=== PATIENT | male | born 1965 | race African-American/Black ===

== ENCOUNTER 2017-02-04 14:06 | Emergency (ER) | payer MEDICAID, MEDICARE ==
[~2017-02-04] VITALS: Ht 182.9 cm; Wt 86.2 kg
[~2017-02-04 14:06] MED LIST: AGM875T PO; AMLO10TA PO; AMLO10TA82 PO; ATENOLOL; BUDE0.5A2 IH; CA C1TAB26 PO; COLC0.6T53; COLC0.6T53 PO; COLC0.6T7 PO; COUMADIN PO; CYCL10TA9 PO; DEXA4TAB PO; DILT240C; DULO60CA58 PO; DULO60CA6 PO; FEBU40TA PO; FERR-57 PO; FLC1T PO; FOLI0.4T2 PO; FRS325T PO; GABA-488 PO; GABA600T2 PO; GBPN100C PO; GLIM2TAB PO; HYDR-2889 PO; HYDR1TAB PO; IBP800T; IPRA3AMP19 IH; LENA25CA PO; LEVO500T69 PO; METF1000 PO; MTF500T; MTF500T PO; MTP50T PO; NS.65NA45; OXC10TCR PO; OXYCODONE 10 MG PO; PANT40TA PO; PNT40TEC PO; POLY17PO23 PO; REVLIMID 10MG PO; SITA100T PO
[2017-02-04] MEDS ORDERED: ACETAMINOPHEN 325 MG TABLET/CAPLET (TYLENOL) PO STA (15:20)
--- NOTE | 2017-02-04 15:39 | ED Cough/URI ---
General Chief Complaint: Cough/Cold/Flu Symptoms Stated Complaint: POSS PNEUMONIA,FEVER,CHILLS,N/V Nursing Triage Note: AMB TO ROOM REPORTS THAT FOR 2 DAYS HAS HAD COUGH CONGESTION BODY ACHES. History of Present Illness Time seen by provider: 15:10 Initial Comments Patient reports dry cough, fevers and body aches for 2 days. He has a history of multiple myeloma, he is on remission medication. He took ibuprofen approximately 5 hours ago, he had one episode of vomiting after that. He denies any nausea or vomiting presently. He was at [facility] approximately 2-3 weeks ago for a bone marrow biopsy. Severity/Quality: dry cough Prior Episodes/Possible Cause: occasional episodes Modifying Factors: Improves With Rest Associated Symptoms: cough, muscle aches, nasal congestion, shortness of breath Allergies and Home Medications Allergies Coded Allergies: No Known Drug Allergies (Unverified , 05/27/09) Home Medications Amlodipine Besylate 10 Mg Tablet, 10 MG PO DAILY, (Reported) Ca Cmb No.1/Vit D3/B-6/Fa/B12 1 Each Tablet, 1,000 UNIT PO DAILY, (Reported) Cefdinir 300 Mg Capsule, 300 MG PO BID, #14 Ref 0 Prescribed by: AUDREY RINCON on 02/04/171727 Colchicine 0.6 Mg Tablet, 0.6 MG PO BID PRN for GOUT PAIN, (Reported) Cyclobenzaprine Hcl 10 Mg Tablet, 10 MG PO TID PRN for MUSCLE SPASMS, (Reported) Duloxetine HCl 60 Mg Capsule.dr, 60 MG PO DAILY, (Reported) Febuxostat 40 Mg Tablet, 40 MG PO DAILY, (Reported) Ferrous Sulfate 325 Mg Tab, 325 MG PO DAILY, (Reported) Folic Acid 0.4 Mg Tablet, 0.4 MG PO DAILY, (Reported) Gabapentin 300 Mg Capsule, 300 MG PO HS, (Reported) Glimepiride 2 Mg Tablet, 2 MG PO BID, (Reported) Metformin Hcl 1,000 Mg Tablet, 1,000 MG PO BID, (Reported) Metoprolol Tartrate 50 Mg Tablet, 50 MG PO BID, (Reported) Pantoprazole Sodium 40 Mg Tablet.dr, 40 MG PO DAILY, (Reported) Polyethylene Glycol 17 Gm Pack, 34 GM PO DAILY PRN for CONSTIPATION, (Reported) Potassium Chloride 10 Meq Capsule.er, 10 MEQ PO DAILY, #5 Ref 0 Prescribed by: AUDREY RINCON on 02/04/17 1728 Sitagliptin Phosphate 100 Mg Tablet, 100 MG PO DAILY, (Reported) [Oxycodone 10MG] , 10 MG PO BID, (Reported) [Revlimid 10MG] , 10 MG PO DAILY, (Reported) Constitutional: no symptoms reported, see HPI Respiratory: see HPI, cough All Other Systems Reviewed Negative Unless Noted: Yes Past Uchverd-Hpzlau-Dycazm Hx Patient Social History Alcohol Use: Occasionally Uses Number of Drinks Today: AA Alcohol Beverage of Choice: Beer Recreational Drug Use: No Smoking Status: Never a Smoker Recent Foreign Travel: No Contact w/Someone Who Travel: No Recent Infectious Disease Expo: No Recent Hopitalizations: No Immunizations Up To Date Date of Pneumonia Vaccine: Jul 18, 2012 Date of Influenza Vaccine: Mar 19, 2012 Surgeries History of Surgeries: Yes (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, KNEE,SHOLDER) Respiratory History of Respiratory Disorde: No Cardiovascular History of Cardiac Disorders: Yes Neurological History of Neurological Disord: Yes (BELLS PALSY) Reproductive System Hx Reproductive Disorders: No Sexually Transmitted Disease: No Gastrointestinal History of Gastrointestinal Di: No Musculoskeletal History of Musculoskeletal Dis: No Musculoskeletal Disorders: Chronic Back Pain Endocrine History of Endocrine Disorders: Yes Endocrine Disorders: Diabetes, Non-Insulin dep Cancer History of Cancer: Yes (MULTIPLE MYELOMA, STEM CELL TRANSPLANT) Psychosocial History of Psychiatric Problem: No Blood Transfusions History of Blood Disorders: No Reviewed Nursing Assessment Reviewed/Agree w Nursing PMH: Yes Physical Exam Vital Signs Vital Sign - Last 12Hours 02/04/17 14:27 Temp 99.6 Pulse 118 Resp 18 B/P (MAP) 154/94 Pulse Ox 98 O2 Delivery Room Air Capillary Refill : Less Than 3 Seconds General Appearance: WD/WN, no apparent distress Eyes: Bilateral Eye Normal Inspection, Bilateral Eye PERRL, Bilateral Eye EOMI HEENT: PERRL/EOMI, normal ENT inspection, TMs normal, pharynx normal Neck: non-tender, full range of motion, supple, normal inspection Respiratory: chest non-tender, lungs clear, decreased breath sounds (on exhalation) Cardiovascular: normal peripheral pulses, regular rate, rhythm Gastrointestinal: normal bowel sounds, non tender, soft Neurologic/Psychiatric: no motor/sensory deficits, alert, normal mood/affect Skin: normal color, warm/dry Lymphatic: no adenopathy Focused Exam Evaluation Lactate Level Laboratory Tests 02/04/17 15:40: Lactic Acid Level 1.43 Lactic Acid Level Laboratory Tests Test 02/04/17 15:40 Lactic Acid Level 1.43 MMOL/L (0.50-2.00) Progress/Results/Core Measures Results/Orders Lab Results Laboratory Tests Test 02/04/17 15:40 Range/Units White Blood Count 3.9 L 4.3-11.0 10^3/uL Red Blood Count 4.92 4.35-5.85 10^6/uL Hemoglobin 13.6 13.3-17.7 G/DL Hematocrit 40 40-54 % Mean Corpuscular Volume 81 80-99 FL Mean Corpuscular Hemoglobin 28 25-34 PG Mean Corpuscular Hemoglobin Concent 34 32-36 G/DL Red Cell Distribution Width 14.8 H 10.0-14.5 % Platelet Count 136 130-400 10^3/uL Mean Platelet Volume 9.2 7.4-10.4 FL Neutrophils (%) (Auto) 49 42-75 % Lymphocytes (%) (Auto) 37 12-44 % Monocytes (%) (Auto) 14 H 0-12 % Eosinophils (%) (Auto) 0 0-10 % Basophils (%) (Auto) 0 0-10 % Neutrophils # (Auto) 1.9 1.8-7.8 X 10^3 Lymphocytes # (Auto) 1.4 1.0-4.0 X 10^3 Monocytes # (Auto) 0.5 0.0-1.0 X 10^3 Eosinophils # (Auto) 0.0 0.0-0.3 10^3/uL Basophils # (Auto) 0.0 0.0-0.1 10^3/uL Sodium Level 132 L 135-145 MMOL/L Potassium Level 2.9 L 3.6-5.0 MMOL/L Chloride Level 92 L 98-107 MMOL/L Carbon Dioxide Level 29 21-32 MMOL/L Anion Gap 11 5-14 MMOL/L Blood Urea Nitrogen 7 7-18 MG/DL Creatinine 1.06 0.60-1.30 MG/DL Estimat Glomerular Filtration Rate > 60 BUN/Creatinine Ratio 7 Glucose Level 125 H 70-105 MG/DL Lactic Acid Level 1.43 0.50-2.00 MMOL/L Calcium Level 8.5 8.5-10.1 MG/DL Total Bilirubin 1.0 0.1-1.0 MG/DL Aspartate Amino Transf (AST/SGOT) 59 H 5-34 U/L Alanine Aminotransferase (ALT/SGPT) 33 0-55 U/L Alkaline Phosphatase 81 40-136 U/L Total Protein 11.2 H 6.4-8.2 GM/DL Albumin 3.8 3.2-4.5 GM/DL Micro Results Microbiology 02/04/17 Influenza Types A,B Antigen (VIVIANA) - Final, Complete My Orders Orders - AUDREY RINCON Chest Pa/Lat (2 View) (02/04/17 15:18) Cbc With Automated Diff (02/04/17 15:19) Comprehensive Metabolic Panel (02/04/17 15:19) Acetaminophen Tablet/Caplet (Tylenol T (02/04/17 15:20) Influenza A And B Antigens (02/04/17 15:20) Saline Lock/Iv-Start (02/04/17 15:20) Lactic Acid Analyzer (02/04/17 15:21) Blood Culture (02/04/17 15:42) Ns W/Kcl 20 Meq/L (Ns Iv W/Kcl 20 Meq/L) (02/04/17 16:22) Medications Given in ED Current Medications Medications Dose Ordered Sig/Citlali Route Start Time Stop Time Status Last Admin Dose Admin Potassium Chloride/Sodium Chloride 1,000 ml @ ud STK-MED ONCE IV 02/04/17 16:22 02/04/17 16:31 DC 02/04/17 16:35 750 MLS/HR Vital Signs/I&O Vital Sign - Last 12Hours 02/04/17 02/04/17 14:27 18:06 Temp 99.6 98.2 Pulse 118 100 Resp 18 18 B/P (MAP) 154/94 Pulse Ox 98 98 O2 Delivery Room Air Blood Pressure Mean: 114 Progress Note : Time: 15:10 Progress Note Initial evaluation completed, recommended CBC, CMP, blood cultures, lactic acid , influenza swab, and chest x-ray. Will reevaluate after diagnostic studies. 1545 reviewed chest x-ray results with the patient, essentially normal. Negative influenza swab. Patient has hypokalemia and hyponatremia, will administer normal saline with 20 mEq of potassium 1 L IV over one hour. 1630 discussed discharge planning with the patient, he understands importance to follow-up with his oncologist in [place]. Reviewed recommendations for return to emergency department if symptoms are worsening. He will complete antibiotics as prescribed. Encouraged him to began drinking Pedialyte on a regular basis and eating bananas for his electrolyte abnormalities. He verbalized understanding of this treatment plan and was in agreement. Diagnostic Imaging Diagonstic Imaging: Xray Plain Films/CT/US/NM/MRI: chest Comments NAME: [facility] REC#: [id number] PT STATUS: REG ER : 1965 PHYSICIAN: AUDERY RINCON LAUNDRY SORTER ADMIT DATE: 02/04/17/ER Signed Date of Exam: 02/04/17 CHEST PA/LAT (2 VIEW) PA and lateral views of the chest. INDICATION: Cough. FINDINGS: The lungs are clear. The heart size is normal. No effusion or pneumothorax. The mediastinum and luz appear unremarkable. There is a left subclavian infusion port with the tip at the SVC level. IMPRESSION: No acute process. Dictated by: Dictated on workstation # [id number] Dict: 02/04/17 1532 Trans: 02/04/17 1542 Interpreted by: DEWAYNE HAYES MD Electronically signed by: DEWAYNE HAYES MD 02/04/17 1542 Reviewed: Reviewed by Me Departure Impression Impression: Primary Impression: Upper respiratory infection Qualified Codes: J06.9 - Acute upper respiratory infection, unspecified Additional Impressions: Hypokalemia Hyponatremia Disposition: 01 HOME, SELF-CARE Condition: Stable Departure-Patient Inst. Decision time for Depature: 16:45 Referrals: NO,LOCAL PHYSICIAN (PCP/Family) Primary Care Physician Patient Instructions: Bacterial Upper Respiratory Infection, Adult (DC) Add. Discharge Instructions: Take antibiotic as prescribed. Follow up with primary care provider in 3-4 days if symptoms are not improving. Alternate Tylenol 650 mg and ibuprofen 600 mg every 4 hours for fever and body aches. Return to emergency department for temperature greater than 101, worsening of symptoms or new problems. Drink 6-8 oz of Pedialyte 3-4 times daily. Eat a banana daily. All discharge instructions reviewed with patient and/or family. Voiced understanding. Scripts Potassium Chloride (Potassium Chloride) 10 Meq Capsule.er 10 MEQ PO DAILY, #5 CAP 0 Refills Prov: AUDREY RINCON 02/04/17 Cefdinir (Cefdinir) 300 Mg Capsule 300 MG PO BID, #14 CAP 0 Refills Prov: AUDREY RINCON 02/04/17 AUDREY RINCON Feb 04, 2017 15:39
[2017-02-04 15:57] LABS: BASOPHILS % (AUTO) 0 % (0-10); EOSINOPHILS % (AUTO) 0 % (0-10); LYMPHOCYTES # (AUTO) 1.4 X 10^3 (1.0-4.0); LYMPHOCYTES % (AUTO) 37 % (12-44); MEAN CORPUSCULAR HEMOGLOBIN 28 PG (25-34); MEAN CORPUSCULAR HGB CONC 34 G/DL (32-36); MEAN CORPUSCULAR VOLUME 81 FL (80-99); MEAN PLATELET VOLUME 9.2 FL (7.4-10.4); MONOCYTES # (AUTO) 0.5 X 10^3 (0.0-1.0); MONOCYTES % (AUTO) 14 % (0-12); NEUTROPHILS # (AUTO) 1.9 X 10^3 (1.8-7.8); NEUTROPHILS % (AUTO) 49 % (42-75); PLATELET COUNT 136 10^3/uL (130-400); RED BLOOD COUNT 4.92 10^6/uL (4.35-5.85); RED CELL DISTRIBUTION WIDTH 14.8 % (10.0-14.5); WHITE BLOOD COUNT 3.9 10^3/uL (4.3-11.0)
[2017-02-04 16:19] LABS: ALANINE AMINOTRANSFERASE 33 U/L (0-55); ALBUMIN 3.8 GM/DL (3.2-4.5); ANION GAP 11 MMOL/L (5-14); ASPARTATE AMINO TRANSFERASE 59 U/L (5-34); BLOOD UREA NITROGEN 7 MG/DL (7-18); BUN/CREATININE RATIO 7; CALCIUM 8.5 MG/DL (8.5-10.1); CARBON DIOXIDE 29 MMOL/L (21-32); CHLORIDE 92 MMOL/L (98-107); CREATININE SERUM 1.06 MG/DL (0.60-1.30); GFR ESTIMATED > 60; GLUCOSE 125 MG/DL (70-105); POTASSIUM 2.9 MMOL/L (3.6-5.0); SODIUM 132 MMOL/L (135-145); TOTAL PROTEIN 11.2 GM/DL (6.4-8.2)
[2017-02-04] MEDS ORDERED: NS W/KCL 20 MEQ/L 1,000 ML IV ONE (16:22)
[2017-02-04] MEDS ORDERED: CEFD300C3 PO (17:28)
[2017-02-04] MEDS ORDERED: POTA10CA43 PO (17:28)
[2017-02-04 18:06] VITALS: BP 148/95
--- OUTSIDE RECORDS SUMMARY | 2017-02-04 21:15 | XMS REPORT | Clinical Summary ---
Author Author [facility] Organization [facility] Address Unknown Phone Unavailable Care Team Providers Care Continuous Process Tanner Rotary Drum Name Role Phone PCP Unavailable Source Comments Some departments are not documenting in the electronic medical record. If you do not see the information that you expected, contact Release of Information in the Health Information Management department at [phone] for further assistance in locating additional records.[facility] Allergies No Known Allergies Current Medications Prescription Sig. Disp. Refills Start End Date Status Date lidocaine/prilocaine Apply 1 g to affected Active (EMLA) 2.5/2.5 % topical area as Needed. Apply to cream port site insulin aspart (NOVOLOG) Inject 5 Units into Active 100 unit/mL area(s) as directed three times daily with meals. PRN per mid-dose sliding scale. metoprolol (LOPRESSOR) 50 Take 50 mg by mouth Active mg tablet daily. gabapentin (NEURONTIN) Take 300 mg by mouth Active 300 mg capsule three times daily. DULoxetine DR (CYMBALTA) Take 60 mg by mouth Active 60 mg capsule daily. pantoprazole DR Take 40 mg by mouth Active (PROTONIX) 40 mg tablet daily. Febuxostat (ULORIC) 40 mg Take 1 Tab by mouth Active Tab daily. metFORMIN (GLUCOPHAGE) Take 500 mg by mouth Active 500 mg tablet twice daily with meals. INSULIN Inject 10 Units into Active GLARGINE,HUM.REC.ANLOG area(s) as directed at (LANTUS SC) bedtime daily. senna/docusate Take 1 Tab by mouth three Active (SENEXON-S) 8.6/50 mg times daily. HOLD DURING tablet TRANSPLANT cyclobenzaprine Take 10 mg by mouth three Active (FLEXERIL) 10 mg tablet times daily as needed. acyclovir (ZOVIRAX) 400 Take 800 mg by mouth Active mg tablet twice daily. LORazepam (ATIVAN) 0.5 mg Take 0.5 mg by mouth Active tablet every 6 hours as needed. Take 1-2 tabs by mouth every 6 hours as needed for nausea or anxiety. trimethoprim/sulfamethoxa Take 1 Tab by mouth as Active zole (BACTRIM DS) 160/800 Needed. One tab twice mg tablet daily on Mondays and only. amLODIPine (NORVASC) 10 Take 10 mg by mouth Active mg tablet daily. ondansetron (ZOFRAN ODT) Take 8 mg by mouth every Active 8 mg disintegrating 8 hours as needed. tablet oxyCODONE (ROXICODONE) 5 Take 1-2 Tabs by mouth 60 Tab 0 07/02/20 Active mg tablet every 4-6 hours as 12 needed. colchicine 0.6 mg tablet Take 1 Tab by mouth twice 60 Tab 5 07/03/19 Active daily. 12 methylPREDNIsolone Take 1 Tab by mouth Take 21 Tab 0 07/03/19 Active (MEDROL DOSPACK) 4 mg as directed. Follow 12 tablet instructions on package. Do not take day 1, start on evening dose of day 2. 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 Knee pain 06/26/2011 Gout 06/26/2011 Multiple myeloma, without mention of having achieved remission 05/26/2011 HTN (hypertension) 05/26/2011 DM (diabetes mellitus) (HCC) 05/26/2011 At risk for falls 05/26/2011 Overview: Uses cane / walker, has a weak back and knees Immunizations Name Dates Previously Given Next Due Acthib Vaccine 04/03/2013, 03/21/2012 FLU VACCINE >3YO 03/21/2012 (Preservative Free) HEPATITIS B vaccine, 01/06/2013, 03/21/2012 unspecified (Historical) IPV 04/03/2013, 01/06/2013, 03/21/2012 Pneumococcal Vaccine 03/21/2012 (23-Ivone Adult) Pneumococcal 04/03/2013, 01/06/2013 Vaccine(13-Ivone Peds/immunocompromised adult) Tdap Vaccine 01/06/2013, 03/21/2012 Family History Medical History Relation Name Comments Hypertension Brother SLE Maternal Aunt Cancer-Breast Maternal Grandmother Relation Name Status Comments Brother Alive Brother Alive Brother Alive Brother Alive Father Other unknown medical history Half Sister Other unknown medically history Maternal Aunt Maternal Grandmother Mother Alive Social History Tobacco Use Types Packs/Day Years Used Date Former Smoker Quit: 04/19/2001 Smokeless Tobacco: Former Quit: User 05/18/2011 Alcohol Use Drinks/Week oz/Week Comments Yes socially drinks beer / monthly Sex Assigned at Date Recorded Not on file Last Filed Vital Signs Vital Sign Reading Time Taken Blood Pressure 122/82 07/03/2011 12:00 PM CDT Pulse 73 07/03/2011 12:00 PM CDT Temperature 36.4 C (97.5 F) 07/03/2011 12:00 PM CDT Respiratory Rate 18 06/26/2011 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 Oxygen Saturation 98% 07/03/2011 12:00 PM CDT Inhaled Oxygen - - Concentration Weight 96 kg (211 lb 10.3 oz) 07/03/2011 4:00 AM CDT Height 182.9 cm (6') 06/30/2011 5:30 PM CDT Body Mass Index 28.7 07/03/2011 4:00 AM CDT Plan of Treatment Health Maintenance Due Date Last Done Comments PHYSICAL (COMPREHENSIVE) 1973 EXAM DILATED EYE EXAM 1984 FOOT EXAM 1984 HBA1C 1984 MICROALBUMIN 1984 COLORECTAL CANCER 2016 SCREENING INFLUENZA VACCINE 11/17/2016 03/21/2012 TETANUS VACCINE 01/06/2023 01/06/2013, 03/21/2012 PERTUSSIS VACCINE Completed 01/06/2013, 03/21/2012 PNEUMONIA VACCINE (DM) Completed 04/03/2013, 01/06/2013, 03/21/2012 Results Not on filefrom Last 3 Months
== END 2017-02-04 18:08 | disposition home or self-care (01) ==
LOC: EDUNIT# 14:06 → ER 14:08
DX: N39.0 Urinary tract infection, site not specified (principal); E87.6 Hypokalemia; E87.1 Hypo-osmolality and hyponatremia; E11.9 Type 2 diabetes mellitus without complications; Z94.84 Stem cells transplant status; Z79.84 Long term (current) use of oral hypoglycemic drugs
CPT/HCPCS: 36415; 71020; 80053; 83605; 85025; 87040; 87804; 96365; 96366; 99283

== ENCOUNTER 2018-01-19 14:35 | Emergency (ER) | payer MEDICARE, OTHER ==
[~2018-01-19] VITALS: Ht 182.9 cm; Wt 97.5 kg
[~2018-01-19 14:35] MED LIST changes: +CEFD300C3 PO; +POTA10CA43 PO
--- OUTSIDE RECORDS SUMMARY | 2018-01-19 14:43 | XMS REPORT | Clinical Summary ---
Author Author [facility] Organization [facility] Address Unknown Phone Unavailable Care Team Providers Care Machine Setter Supervisor Name Role Phone Cristobal Goodrich MD PCP Cooper Mracelino MD Unavailable Virgilio Patel MD Unavailable Unavailable Oumar Hodge DO Unavailable Paco Wetzel MD Unavailable Cortney Sifuentes APRN Unavailable Anna Hampton Unavailable Unavailable Source Comments Some departments are not documenting in the electronic medical record. 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 Oxygen Saturation 98% 07/03/2011 12:00 PM CDT Inhaled Oxygen - - Concentration Weight 96 kg (211 lb 10.3 oz) 07/03/2011 4:00 AM CDT Height 182.9 cm (6') 06/30/2011 5:30 PM CDT Body Mass Index 28.7 07/03/2011 4:00 AM CDT Plan of Treatment Health Maintenance Due Date Last Done Comments PHYSICAL (COMPREHENSIVE) 1973 EXAM HIV SCREENING 1981 DILATED EYE EXAM 1984 FOOT EXAM 1984 HBA1C 1984 MICROALBUMIN 1984 COLORECTAL CANCER 2016 SCREENING SHINGLES RECOMBINANT 2016 VACCINE (1 of 2) INFLUENZA VACCINE 11/17/2017 03/21/2012 TETANUS VACCINE 01/06/2023 01/06/2013, 03/21/2012 PERTUSSIS VACCINE Completed 01/06/2013, 03/21/2012 PNEUMONIA VACCINE (DM) Completed 04/03/2013, 01/06/2013, 03/21/2012 Results Not on filefrom Last 3 Months
--- OUTSIDE RECORDS SUMMARY | 2018-01-19 14:43 | XMS REPORT | Encounter Summary ---
Author Author [facility] Organization [facility] Address Unknown Phone Unavailable Care Team Providers Care Business Analytics Faculty Member Name Role Phone Cristobal Goodrich MD PCP Cooper Marcelino MD Unavailable Virgilio Patel MD Unavailable Unavailable Oumar Hodge DO Unavailable Paco Wetzel MD Unavailable Cortney Sifuentes APRN Unavailable Anna Hampton Unavailable Unavailable Encounter Details Date Type Department Care Team Description 11/23/2017 Documentation [facility] Oumar Hodge DO [facility] - BMT Exam [address] [employer] [address] [employer] [facility] [place] [address] [place] [address] [address] [phone] [place] [address] [phone] Social History Tobacco Use Types Packs/Day Years Used Date Former Smoker Quit: 04/19/2001 Smokeless Tobacco: Former Quit: User 05/18/2011 Alcohol Use Drinks/Week oz/Week Comments Yes socially drinks beer / monthly Sex Assigned at Date Recorded Not on file as of this encounter Plan of Treatment Not on fileas of this encounter Visit Diagnoses Not on filein this encounter
[2018-01-19] MEDS ORDERED: PHENYTOIN INJECTION 1,000 MG in NS (IVPB) 50 ML, 0.2 MICRON FILTER IV SET 1 EACH IV ONE ×3 (14:45)
[2018-01-19] MEDS ORDERED: TETANUS,DIPTH,PERTUSS P/F (BOOSTRIX) 0.5 ML VIAL IM STA (14:45)
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
[2018-01-19 14:53] LABS: BASOPHILS % (AUTO) 0 % (0-10); EOSINOPHILS % (AUTO) 0 % (0-10); HEMATOCRIT 37 % (40-54); HEMOGLOBIN 12.2 G/DL (13.3-17.7); LYMPHOCYTES # (AUTO) 2.4 X 10^3 (1.0-4.0); LYMPHOCYTES % (AUTO) 40 % (12-44); MEAN CORPUSCULAR HEMOGLOBIN 29 PG (25-34); MEAN CORPUSCULAR HGB CONC 33 G/DL (32-36); MEAN CORPUSCULAR VOLUME 89 FL (80-99); MEAN PLATELET VOLUME 8.5 FL (7.4-10.4); MONOCYTES # (AUTO) 0.4 X 10^3 (0.0-1.0); MONOCYTES % (AUTO) 7 % (0-12); NEUTROPHILS # (AUTO) 3.2 X 10^3 (1.8-7.8); NEUTROPHILS % (AUTO) 53 % (42-75); PLATELET COUNT 213 10^3/uL (130-400); RED BLOOD COUNT 4.17 10^6/uL (4.35-5.85); RED CELL DISTRIBUTION WIDTH 14.7 % (10.0-14.5)
[2018-01-19 15:05] LABS: INR 1.3 (0.8-1.4); PROTHROMBIN TIME PATIENT 15.9 SEC (12.2-14.7)
--- NOTE | 2018-01-19 15:05 | ED Neurological Problem ---
General Chief Complaint: Neurological Problems Stated Complaint: SEIZURE Source: patient, EMS Exam Limitations: clinical condition History of Present Illness Date Seen by Provider: Jan 19, 2018 Time Seen by Provider: 14:43 Initial Comments Patient presents to ER by EMS with chief complaint that he had us witnessed seizure at [facility] this prior to arrival. He has no history of seizures but he does have a history of multiple myeloma. Patient remembers going on his way to [facility] and then passing out. Assumed care of the patient from Dr. Colon who had already seen the patient. At the time she saw him she said he was postictal, confused as to where he was but knew who he was and what time it was. He knew he was in [place] only but thought it was home. He knows that he is in the emergency room and he remembers up to the point that he was heading to [facility]. He takes an aspirin patient follows an oncologist in [place], [place]. He is not having any chest pain shortness of breath or fevers but he does have a dry cough for the past 3 or 4 days. He says he is having pain in the back of his head. Allergies and Home Medications Allergies Coded Allergies: No Known Drug Allergies (Unverified , 05/27/09) Home Medications Amlodipine Besylate 10 Mg Tablet, 10 MG PO DAILY, (Reported) Ca Cmb No.1/Vit D3/B-6/Fa/B12 1 Each Tablet, 1,000 UNIT PO DAILY, (Reported) Cefdinir 300 Mg Capsule, 300 MG PO BID Prescribed by: AUDREY RINCON on 02/04/17 3870 Colchicine 0.6 Mg Tablet, 0.6 MG PO BID PRN for GOUT PAIN, (Reported) Cyclobenzaprine Hcl 10 Mg Tablet, 10 MG PO TID PRN for MUSCLE SPASMS, (Reported) Duloxetine HCl 60 Mg Capsule.dr, 60 MG PO DAILY, (Reported) Febuxostat 40 Mg Tablet, 40 MG PO DAILY, (Reported) Ferrous Sulfate 325 Mg Tab, 325 MG PO DAILY, (Reported) Folic Acid 0.4 Mg Tablet, 0.4 MG PO DAILY, (Reported) Gabapentin 300 Mg Capsule, 300 MG PO HS, (Reported) Glimepiride 2 Mg Tablet, 2 MG PO BID, (Reported) Metformin Hcl 1,000 Mg Tablet, 1,000 MG PO BID, (Reported) Metoprolol Tartrate 50 Mg Tablet, 50 MG PO BID, (Reported) Pantoprazole Sodium 40 Mg Tablet.dr, 40 MG PO DAILY, (Reported) Polyethylene Glycol 17 Gm Pack, 34 GM PO DAILY PRN for CONSTIPATION, (Reported) Potassium Chloride 10 Meq Capsule.er, 10 MEQ PO DAILY Prescribed by: AUDREY RINCON on 02/04/17 1728 Sitagliptin Phosphate 100 Mg Tablet, 100 MG PO DAILY, (Reported) [Oxycodone 10MG] , 10 MG PO BID, (Reported) [Revlimid 10MG] , 10 MG PO DAILY, (Reported) Patient Home Medication List Home Medication List Reviewed: Yes Review of Systems Review of Systems Constitutional: No chills, No diaphoresis Eyes: Denies Blindness, Denies Blurred Vision Ears, Nose, Mouth, Throat: denies ear pain, denies ear discharge Respiratory: cough; No phlegm, No short of breath Cardiovascular: No chest pain, No edema, No Hx of Intervention, No palpitations Gastrointestinal: No abdominal pain, No constipation, No diarrhea, No nausea Genitourinary: No discharge, No dysuria Musculoskeletal: No back pain, No joint pain Past Yqbzhuf-Wyhhpq-Jfjfdo Hx Patient Social History Alcohol Use: Occasionally Uses Alcohol Beverage of Choice: Beer Recreational Drug Use: No Smoking Status: Former Smoker Type Used: Smokeless Tobacco (current user) Recent Hopitalizations: No Immunizations Up To Date Date of Pneumonia Vaccine: Jul 18, 2012 Date of Influenza Vaccine: Mar 19, 2012 Past Medical History Surgeries: Yes (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, KNEE,SHOLDER) Respiratory: No Cardiac: Yes Neurological: Yes (BELLS PALSY) Reproductive Disorders: No Sexually Transmitted Disease: No Gastrointestinal: No Musculoskeletal: No Chronic Back Pain Endocrine: Yes Diabetes, Non-Insulin dep Cancer: Yes (MULTIPLE MYELOMA, STEM CELL TRANSPLANT) Psychosocial: No Blood Disorders: No Physical Exam Vital Signs Vital Signs - First Documented 01/19/18 14:35 Temp 98.4 Pulse 133 Resp 20 B/P (MAP) 154/103 (120) Pulse Ox 97 O2 Delivery Room Air Capillary Refill : Height, Weight, BMI Height: 6'" Weight: 190lbs. oz. [id number]; BMI Method:Stated General Appearance: WD/WN, mild distress HEENT: PERRL/EOMI, normal ENT inspection, TMs normal, pharynx normal, other ( negative for hemotympanum, carter sign or raccoon eyes. He does have a rather large 5 cm diameter soft, tender hematoma over his right occiput) Neck: non-tender, supple, normal inspection, other (cervical collar and C- spine precautions in place.) Respiratory: chest non-tender, lungs clear, normal breath sounds, no respiratory distress, no accessory muscle use Cardiovascular: normal peripheral pulses, regular rate, rhythm, no edema, no murmur Peripheral Pulses: 2+ Dorsalis Pedis (R), 2+ Left Dors-Pedis (L), 2+ Radial Pulses (R), 2+ Radial Pulses (L) Gastrointestinal: normal bowel sounds, non tender, soft Extremities: normal range of motion, non-tender, normal inspection, normal capillary refill 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, no motor/sensory deficits, alert, normal mood/affect, oriented x 3 Crainal Nerves: normal hearing, normal speech, PERRL Motor/Sensory: no motor deficit, no sensory deficit Skin: normal color, warm/dry Procedures/Interventions Wound Location: Scalp Other Wound Location Occiput Wound Length (cm): 7 Wound's Depth, Shape: sub Q (lambda shaped) Wound Explored: clean Betadine Prep?: Yes (chlorhexidine soap water) Anesthesia: 1% Lidocaine Volume Anesthetic (ccs): 8 Wound Debrided: minimal Staple Repair: Stapler 35W Number of Sutures: 8 Layer Closure?: 1 Progress Wound was cleaned thoroughly with chlorhexidine soap water, infiltrated along the wound edges with 1% lidocaine without epinephrine and then reapproximated and closed with josh. Wound was hemostatic and the patient tolerated the procedure well. Progress/Results/Core Measures Results/Orders Lab Results Laboratory Tests Test 01/19/18 14:35 01/19/18 15:14 Range/Units White Blood Count 6.0 4.3-11.0 10^3/uL Red Blood Count 4.17 L 4.35-5.85 10^6/uL Hemoglobin 12.2 L 13.3-17.7 G/DL Hematocrit 37 L 40-54 % Mean Corpuscular Volume 89 80-99 FL Mean Corpuscular Hemoglobin 29 25-34 PG Mean Corpuscular Hemoglobin Concent 33 32-36 G/DL Red Cell Distribution Width 14.7 H 10.0-14.5 % Platelet Count 213 130-400 10^3/uL Mean Platelet Volume 8.5 7.4-10.4 FL Neutrophils (%) (Auto) 53 42-75 % Lymphocytes (%) (Auto) 40 12-44 % Monocytes (%) (Auto) 7 0-12 % Eosinophils (%) (Auto) 0 0-10 % Basophils (%) (Auto) 0 0-10 % Neutrophils # (Auto) 3.2 1.8-7.8 X 10^3 Lymphocytes # (Auto) 2.4 1.0-4.0 X 10^3 Monocytes # (Auto) 0.4 0.0-1.0 X 10^3 Eosinophils # (Auto) 0.0 0.0-0.3 10^3/uL Basophils # (Auto) 0.0 0.0-0.1 10^3/uL Prothrombin Time 15.9 H 12.2-14.7 SEC INR Comment 1.3 0.8-1.4 Activated Partial Thromboplast Time 27 24-35 SEC Sodium Level 134 L 135-145 MMOL/L Potassium Level 3.4 L 3.6-5.0 MMOL/L Chloride Level 93 L 98-107 MMOL/L Carbon Dioxide Level 12 L 21-32 MMOL/L Anion Gap 29 H 5-14 MMOL/L Blood Urea Nitrogen 6 L 7-18 MG/DL Creatinine 1.10 0.60-1.30 MG/DL Estimat Glomerular Filtration Rate > 60 BUN/Creatinine Ratio 5 Glucose Level 154 H 70-105 MG/DL Calcium Level 9.0 8.5-10.1 MG/DL Corrected Calcium 9.1 8.5-10.1 MG/DL Magnesium Level 1.3 L 1.8-2.4 MG/DL Total Bilirubin 1.0 0.1-1.0 MG/DL Aspartate Amino Transf (AST/SGOT) 127 H 5-34 U/L Alanine Aminotransferase (ALT/SGPT) 65 H 0-55 U/L Alkaline Phosphatase 69 40-136 U/L Total Creatine Kinase 502 H 30-200 U/L Creatine Kinase MB 5.1 <6.6 NG/ML Troponin I < 0.30 <0.30 NG/ML Total Protein 11.5 H 6.4-8.2 GM/DL Albumin 3.9 3.2-4.5 GM/DL TSH [place] Testing 4.04 0.35-4.94 UIU/ML Acetaminophen Level < 10 L 10-30 UG/ML Serum Alcohol < 10 <10 MG/DL Glucometer 136 H 70-110 MG/DL My Orders Orders - KAMLA WATSON Saline Lock/Iv-Start (01/19/18 15:06) Ns Iv 1000 Ml (Sodium Chloride 0.9%) (01/19/18 15:06) Fentanyl Injection (Sublimaze Injection (01/19/18 16:00) Magnesium 1 Gm/100 Ml Ivpb (Magnesium Vick (01/19/18 16:45) Magnesium Oxide Tablet (Mag Ox Tablet) (01/19/18 16:45) Potassium Chloride (Tablet) (K Dur Table (01/19/18 16:45) Lidocaine 1% Inj 20 Ml (Xylocaine 1% Inj (01/19/18 16:45) Oxycodone/Acet 10/325mg Tablet (Percocet (01/19/18 19:00) Orthostatic Vital Signs (Adult (01/19/18 19:07) Medications Given in ED Current Medications Medications Dose Ordered Sig/Citlali Route Start Time Stop Time Status Last Admin Dose Admin Fentanyl Citrate 50 mcg ONCE ONCE IVP 01/19/18 16:00 01/19/18 16:01 DC 01/19/18 16:44 50 MCG Magnesium Oxide 400 mg ONCE ONCE PO 01/19/18 16:45 01/19/18 16:46 DC 01/19/18 16:48 400 MG Phenytoin Sodium 1000 mg/Sodium Chloride/IV Miscellaneous Supplies 70 ml @ 140 mls/hr ONCE ONCE IV 01/19/18 14:45 01/19/18 15:14 DC 01/19/18 16:09 140 MLS/HR Potassium Chloride 20 meq ONCE ONCE PO 01/19/18 16:45 01/19/18 16:46 DC 01/19/18 16:48 20 MEQ Vital Signs/I&O 01/19/18 14:35 Temp 98.4 Pulse 133 Resp 20 B/P (MAP) 154/103 (120) Pulse Ox 97 O2 Delivery Room Air Progress Progress Note #1: Time: 15:04 Progress Note Dilantin, lab orders, EKG, CT of the head and C-spine, chest x-ray ordered. Progress Note #2: Time: 16:35 Progress Note Magnesium is a little low. Potassium is on a borderline low side so we'll just replace his magnesium orally and potassium orally. His pain is much improved. Which cleared the c-collar at 1635. He still having a mild tenderness in his neck but he says he has chronic neck pain. We'll put in a soft collar. He says he has muscle relaxants at home we can offer him one here she's needing one. Progress Note #3: Time: 19:24 Progress Note The patient has some acidosis, tachycardia and elevated CK. Orthostatics are positive but patient is declining further IV fluids. We will offer the patient some more IV access and IV fluids versus an observation stay to get IV fluids and reassess his labs in the morning but the patient says he would much rather go home and drink and he is already tolerated oral fluids. This could be related to his multiple myeloma and syncopal event. Not sure how to interpret other than maybe to some IV fluids. We've given him some fluids and he is tolerating by mouth fluids at this time. He's been walking around the room. He would like to continue this workup outpatient. We discussed the neurologist's recommendations the patient says he is willing to get this workup done outpatient at [place] with his primary care doctor. Initial ECG Impression Date: Jan 19, 2018 Initial ECG Impression Time: 14:59 Initial ECG Rate: 118 Initial ECG Rhythm: S.Tach Initial ECG Intervals: Normal Initial ECG Impression: Normal, Nonspecific Changes Initial ECG Comparisson: No Previous ECG Available Comment No ST elevation or depression. Leads V6 is missing the other anterior and lateral leads are unremarkable. Sinus tachycardia. Diagnostic Imaging Diagonstic Imaging: Xray Plain Films/CT/US/NM/MRI: chest (1v) Comments No acute cardiopulmonary processes noted. No acute osseous abnormalities. VIA [facility]. [place], [place] NAME: SAVANAH MEDINA [facility] REC#: [id number] PT STATUS: REG ER : 1965 PHYSICIAN: STACEY COLON DO ADMIT DATE: 01/19/18/ER Draft Date of Exam:01/19/18 CHEST 1 VIEW, AP/PA ONLY INDICATION: Head laceration, unknown injury, amnesia. EXAMINATION: Portable chest at 3:38 PM. FINDINGS: The heart and mediastinum are normal. The lungs are clear. There are no effusions or pneumothoraces. The left subclavian Port-A-Cath tip projects over the SVC. IMPRESSION: No acute abnormalities in the chest. Dictated on workstation # [id number] Dict: 01/19/18 1556 Trans: 01/19/18 1601 [id number] Interpreted by: ALE BARRIENTOS MD Electronically signed by: Reviewed: Reviewed by Ct Diagonstic Imaging: CT (without contrast) Plain Films/CT/US/NM/MRI: c-spine, head Comments VIA [facility]. [place], [place] NAME: SAVANAH MEDINA [facility] REC#: [id number] PT STATUS: REG ER : 1965 PHYSICIAN: STACEY COLON DO ADMIT DATE: 01/19/18/ER Draft Date of Exam:01/19/18 CT HEAD/CERVICAL SPINE WO PROCEDURE: CT head and CT cervical spine without contrast. TECHNIQUE: Multiple contiguous axial images were obtained through the brain and cervical spine without the use of intravenous contrast. Sagittal and coronal reformations through the cervical spine were then performed. INDICATION: Seizure, lacerations and swelling to the back of the head. COMPARISON: Exam compared to 12/08/2015. CT HEAD: There is no intracerebral hemorrhage and there is no acute extra-axial fluid collection. Right paramedian posterior scalp swelling and hematomas, noted superficially. The underlying calvarium, however, appears intact. There is no hemo-sinus. The ventricular system is nondilated and nondisplaced. There is no evidence for elevated pressures. The basilar cisterns are patent, the sulci non-effaced. Aside from the soft tissue injury, no other change from prior. CT CERVICAL SPINE: Cervical body heights are maintained. The alignment is stable and anatomic. There are endplate osteophytes, anteriorly, asymmetric and bridged, left greater than right. No acute endplate irregularity. No cervical fracture or paravertebral hematoma. There are vascular calcifications of the carotids, chronic. The skull base appears intact. IMPRESSION: 1. CT head: Posterior scalp hematoma, no intracranial hemorrhage or fracture deformity evident. 2. CT cervical spine: Bridging osteophytes and syndesmophytes are stable, no fracture or traumatic malalignment. No change from prior. Dictated on workstation # [id number] Dict: 01/19/18 1552 Trans: 01/19/18 1559 [id number] Interpreted by: ALLEN LAW Electronically signed by: Reviewed: Reviewed by Ct Diagonstic Imaging: Xray Plain Films/CT/US/NM/MRI: pelvis Comments No acute osseous abnormalities noted. VIA [facility]. [place], [place] NAME: SAVANAH MEDINA MED REC#: [id number] PT STATUS: REG ER : 1965 PHYSICIAN: STACEY COLON DO ADMIT DATE: 01/19/18/ER Draft Date of Exam:01/19/18 PELVIS INDICATION: Trauma, head laceration, amnesia. EXAMINATION: Pelvis at 3:41 p.m. FINDINGS: AP view of the pelvis shows no fracture or dislocation. IMPRESSION: Negative pelvis. Dictated on workstation # [id number] Dict: 01/19/18 1557 Trans: 01/19/18 1600 E [id number] Interpreted by: ALE BARRIENTOS MD Electronically signed by: Reviewed: Reviewed by Ct Diagonstic Imaging: CT (without contrast) Plain Films/CT/US/NM/MRI: other (thoracic and lumbar spine) Comments NAME: SAVANAH MEDINA MED REC#: [id number] PHYSICIAN: STACEY COLON DO CC: ALE BARRIENTOS MD; STACEY COLON DO Page 1 of 1 RADIOLOGY REPORT VIA [facility], [place], [place] CC: ALE BARRIENTOS MD; STACEY COLON DO Page 1 of 1 RADIOLOGY REPORT NAME: SAVANAH MEDINA MED REC#: [id number] PT STATUS: REG ER : 1965 PHYSICIAN: STACEY COLON DO ADMIT DATE: 01/19/18/ER Signed Date of Exam: 01/19/18 CT THORACIC/LUMBAR SPINE WO INDICATION: Head injury from a fall, back pain. EXAMINATION: CT thoracolumbar spine. TECHNIQUE: Thin axial sections through the thoracic and lumbar spine are obtained. Sagittal and coronal images were reformatted and reviewed. FINDINGS: Vertebral alignment is normal. Intervertebral disc spaces are preserved. There are anterior bridging osteophytes throughout the thoracic spine. There is also some osteophyte formation anteriorly and laterally in the lumbar spine. There is an expansile lytic lesion in the T7 vertebral body that extends from the vertebral body through the pedicle and into the transverse process of T7. It also appears to cross the lamina into the lamina on the right side. IMPRESSION: Spondylosis deformans. Expansile lytic lesion in the T7 vertebral body involving the vertebral body and posterior elements. Dictated by: Dictated on workstation # [id number] Dict: 01/19/18 1559 Trans: 01/19/181706 Interpreted by: ALE BARRIENTOS MD Electronically signed by: ALE BARRIENTOS MD 01/19/181706 Reviewed: Reviewed by Me Consults : Consults Notes Dr. Burrell, neurology [facility]; we discussed the patient's case need for antiepileptics and follow-up area and he says that antiepileptics are singer area and if we wanted to do some low-dose Keppra for a week 500 twice a day that would be acceptable although there is no evidence behind it. We discussed the imaging and he said he would also be fine not use antiepileptics whatever the patient wants to do. He does recommend outpatient brain MRI with and without contrast, EEG and a transthoracic echocardiogram. We discussed seizure precautions and no driving in [facility] for 6 months until released. Departure Impression Primary Impression: Episode of syncope Qualified Codes: R55 - Syncope and collapse Additional Impressions: Traumatic hematoma of scalp Qualified Codes: S00.03XA - Contusion of scalp, initial encounter Seizure-like activity Electrolyte disturbance History of multiple myeloma Dehydration Lytic lesion of bone on x-ray Disposition: 01 HOME, SELF-CARE Condition: Improved Departure-Patient Inst. Decision time for Depature: 19:29 Referrals: NO,LOCAL PHYSICIAN (PCP/Family) Primary Care Physician Patient Instructions: Syncope (Fainting) (DC) Add. Discharge Instructions: We don't have any credible evidence yet that she would have had a seizure or that you have not. However we do recommend that you do not drive for 6 months or until you receive clearance from a physician. The neurologist recommendation to work this up would be to get an MRI of her brain with and without contrast as well as an EKG and a transthoracic echocardiogram. These can be set up outpatient by your primary care doctor as well as a referral to a local neurologist. Discuss the lytic lesions seen in your thoracic spine with your primary care doctor to see if this is sales representative marine supplies of advancing disease. Drink lots of fluids tonight and follow-up with your primary care doctor in the next 2 days. All discharge instructions reviewed with patient and/or family. Voiced understanding. Scripts Ondansetron (Zofran Odt) 4 Mg Tab.rapdis 4 MG SL Q4H PRN for NAUSEA/VOMITING-1ST LINE for 7 Days, #8 TAB 0 Refills Prov: KAMLA WATSON 01/19/18 KAMLA WATSON Jan 19, 2018 15:05
[2018-01-19] MEDS ORDERED: NS IV 1000 ML 1,000 ML IV SCH (15:06)
[2018-01-19 15:15] LABS: ACETAMINOPHEN < 10 UG/ML (10-30); ALANINE AMINOTRANSFERASE 65 U/L (0-55); ALBUMIN 3.9 GM/DL (3.2-4.5); ALKALINE PHOSPHATASE 69 U/L (40-136); BUN/CREATININE RATIO 5; CARBON DIOXIDE 12 MMOL/L (21-32); CHLORIDE 93 MMOL/L (98-107); CREATINE KINASE 502 U/L (30-200); GFR ESTIMATED > 60; GLUCOSE 154 MG/DL (70-105); MAGNESIUM 1.3 MG/DL (1.8-2.4); POTASSIUM 3.4 MMOL/L (3.6-5.0); SODIUM 134 MMOL/L (135-145); TOTAL PROTEIN 11.5 GM/DL (6.4-8.2)
[2018-01-19 15:34] LABS: CREATINE KINASE MB 5.1 NG/ML (<6.6); TSH (THYROID ANALYZER) 4.04 UIU/ML (0.35-4.94)
[2018-01-19] MEDS ORDERED: fentaNYL INJECTION 100 MCG/2 ML AMP IVP ONE (16:00)
--- NOTE | 2018-01-19 16:00 | Diagnostic Imaging Report ---
PROCEDURE: CT head and CT cervical spine without contrast. TECHNIQUE: Multiple contiguous axial images were obtained through the brain and cervical spine without the use of intravenous contrast. Sagittal and coronal reformations through the cervical spine were then performed. INDICATION: Seizure, lacerations and swelling to the back of the head. COMPARISON: Exam compared to 12/08/2015. CT HEAD: There is no intracerebral hemorrhage and there is no acute extra-axial fluid collection. Right paramedian posterior scalp swelling and hematomas, noted superficially. The underlying calvarium, however, appears intact. There is no hemo-sinus. The ventricular system is nondilated and nondisplaced. There is no evidence for elevated pressures. The basilar cisterns are patent, the sulci non-effaced. Aside from the soft tissue injury, no other change from prior. CT CERVICAL SPINE: Cervical body heights are maintained. The alignment is stable and anatomic. There are endplate osteophytes, anteriorly, asymmetric and bridged, left greater than right. No acute endplate irregularity. No cervical fracture or paravertebral hematoma. There are vascular calcifications of the carotids, chronic. The skull base appears intact. IMPRESSION: 1. CT head: Posterior scalp hematoma, no intracranial hemorrhage or fracture deformity evident. 2. CT cervical spine: Bridging osteophytes and syndesmophytes are stable, no fracture or traumatic malalignment. No change from prior. Dictated by: Dictated on workstation # [id number]
--- NOTE | 2018-01-19 16:00 | Diagnostic Imaging Report ---
INDICATION: Trauma, head laceration, amnesia. EXAMINATION: Pelvis at 3:41 p.m. FINDINGS: AP view of the pelvis shows no fracture or dislocation. IMPRESSION: Negative pelvis. Dictated by: Dictated on workstation # [id number]
--- NOTE | 2018-01-19 16:02 | Diagnostic Imaging Report ---
INDICATION: Head laceration, unknown injury, amnesia. EXAMINATION: Portable chest at 3:38 PM. FINDINGS: The heart and mediastinum are normal. The lungs are clear. There are no effusions or pneumothoraces. The left subclavian Port-A-Cath tip projects over the SVC. IMPRESSION: No acute abnormalities in the chest. Dictated by: Dictated on workstation # [id number]
--- NOTE | 2018-01-19 16:42 | Diagnostic Imaging Report ---
INDICATION: Head injury from a fall, back pain. EXAMINATION: CT thoracolumbar spine. TECHNIQUE: Thin axial sections through the thoracic and lumbar spine are obtained. Sagittal and coronal images were reformatted and reviewed. FINDINGS: Vertebral alignment is normal. Intervertebral disc spaces are preserved. There are anterior bridging osteophytes throughout the thoracic spine. There is also some osteophyte formation anteriorly and laterally in the lumbar spine. There is an expansile lytic lesion in the T7 vertebral body that extends from the vertebral body through the pedicle and into the transverse process of T7. It also appears to cross the lamina into the lamina on the right side. IMPRESSION: Spondylosis deformans. Expansile lytic lesion in the T7 vertebral body involving the vertebral body and posterior elements. Dictated by: Dictated on workstation # [id number]
[2018-01-19] MEDS ORDERED: MAGNESIUM 1 GM/100 ML IVPB 100 ML IV ONE (16:45)
[2018-01-19] MEDS ORDERED: KCL 20 MEQ TAB (K-DUR) PO ONE (16:45)
[2018-01-19] MEDS ORDERED: LIDOCAINE 1% INJ 20 ML 20 ML VIAL INJ ONE (16:45)
[2018-01-19] MEDS ORDERED: MAGNESIUM OXIDE (MAG-OX)400 MG TAB PO ONE (16:45)
[2018-01-19] MEDS ORDERED: oxyCODONE/APAP 10/325MG (PERCOCET 10) TABLET PO ONE (19:00)
[2018-01-19] MEDS ORDERED: ONDA4TAB8 SL (19:36)
[2018-01-19 19:55] VITALS: BP_SYST 113; BP_SYST 128; BP_SYST 132; BP_DIAS 84; BP_DIAS 85; BP_DIAS 91
[2018-01-19 20:09] VITALS: BP 128/91
== END 2018-01-19 20:10 | disposition home or self-care (01) ==
LOC: ER 14:35 → EDUNIT# 14:35 → ER 14:39
DX: S01.01XA Laceration without foreign body of scalp, initial encounter (principal); R55 Syncope and collapse; E87.8 Other disorders of electrolyte and fluid balance, not elsewhere classified; E86.0 Dehydration; M89.9 Disorder of bone, unspecified; G51.0 Bell's palsy; E11.9 Type 2 diabetes mellitus without complications; Z85.79 Personal history of other malignant neoplasms of lymphoid, hematopoietic and related tissues; Z94.84 Stem cells transplant status; Z79.02 Long term (current) use of antithrombotics/antiplatelets; Z79.84 Long term (current) use of oral hypoglycemic drugs; Z87.891 Personal history of nicotine dependence; X58.XXXA Exposure to other specified factors, initial encounter
CPT/HCPCS: 36415; 70450; 71045; 72125; 72128; 72131; 72170; 80053; 80320; 80329; 82550; 82553; 82962; 83735; 84443; 84484; 85025; 85610; 85730; 90715; 93005; 93041

== ENCOUNTER 2018-02-05 12:33 | Emergency (ER) | payer MEDICARE ==
[~2018-02-05] VITALS: Ht 172.7 cm; Wt 72.6 kg
[~2018-02-05 12:33] MED LIST changes: +ONDA4TAB8 SL
--- OUTSIDE RECORDS SUMMARY | 2018-02-05 12:38 | XMS REPORT | Clinical Summary ---
Author Author [facility] Organization [facility] Address Unknown Phone Unavailable Care Team Providers Care Game Bird Farmer Name Role Phone Cristobal Goodrich MD PCP [...] in the Health Information Management department at [phone] for further assistance in locating additional records.[facility] Allergies No Known Allergies Current Medications [...] CDT Respiratory Rate 18 06/26/2011 11:38 AM CARPENTRY SPECIALIST Oxygen Saturation 98% 07/03/2011 12:00 PM CDT [...]
--- OUTSIDE RECORDS SUMMARY | 2018-02-05 12:38 | XMS REPORT | Clinical Summary ---
Author Author [facility] Organization [facility] Address Unknown Phone Unavailable Care Team Providers Care Airplane Patroller Name Role Phone PCP Unavailable Allergies Not on File Current Medications Not on file Active Problems Not on file Social History Tobacco Use Types Packs/Day Years Used Date Never Assessed Sex Assigned at Date Recorded Not on file Last Filed Vital Signs Not on file Plan of Treatment Not on file Results Not on filefrom Last 3 Months
--- OUTSIDE RECORDS SUMMARY | 2018-02-05 12:38 | XMS REPORT | Encounter Summary ---
Author Author [facility] Organization [facility] Address Unknown Phone Unavailable Care Team Providers Care Carriage Dogger Name Role Phone Cristobal Goodrich MD PCP Cooper Marcelino MD Unavailable Virgilio Patel MD Unavailable Unavailable Oumar Hodge DO Unavailable Paco Wetzel MD Unavailable Cortney Sifuentes APRN Unavailable Anna Hampton Unavailable Unavailable Encounter Details Date Type Department Care Team Description 11/23/2017 Documentation [facility] Oumar Hodge DO [facility] - BMT Exam [address] [facility] [address] [place] [address] [address] [phone] [place] [address] [phone] Social History Tobacco Use Types Packs/Day Years [...]
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
[2018-02-05 12:52] VITALS: BP 128/81
== END 2018-02-05 12:52 | disposition home or self-care (01) ==
LOC: EDUNIT# 12:33 → ER 12:34
DX: S01.01XD Laceration without foreign body of scalp, subsequent encounter (principal); X58.XXXD Exposure to other specified factors, subsequent encounter

== ENCOUNTER 2018-04-01 01:24 | Emergency (ER) | payer MEDICARE ==
[~2018-04-01] VITALS: Ht 182.9 cm; Wt 83.9 kg
--- OUTSIDE RECORDS SUMMARY | 2018-04-01 01:30 | XMS REPORT | Clinical Summary ---
Author Author [facility] Organization [facility] Address Unknown Phone Unavailable Care Team Providers Care Quill Reamer Name Role Phone PCP Unavailable Allergies Not [...]
--- OUTSIDE RECORDS SUMMARY | 2018-04-01 01:31 | XMS REPORT | Clinical Summary ---
Author Author [facility] Organization [facility] Address Unknown Phone Unavailable Care Team Providers Care Freelance Web Designer Name Role Phone Cristobal Goodrich MD PCP [...] in the Health Information Management department at [phone] for further assistance in locating additional records.[facility] Allergies No Known Allergies Medications End Date Status Medication Sig Dispensed Refills Start Date Active lidocaine/prilocaine Apply 1 g to 0 (EMLA) 2.5/2.5 % topical affected area cream as Needed. Apply to port site Active insulin aspart (NOVOLOG) Inject 5 0 100 unit/mL Units into area(s) as directed three times daily with meals. PRN per mid-dose sliding scale. Active metoprolol (LOPRESSOR) 50 Take 50 mg by 0 mg tablet mouth daily. Active gabapentin (NEURONTIN) Take 300 mg 0 300 mg capsule by mouth three times daily. Active DULoxetine DR (CYMBALTA) Take 60 mg by 0 60 mg capsule mouth daily. Active pantoprazole DR Take 40 mg by 0 (PROTONIX) 40 mg tablet mouth daily. Active Febuxostat (ULORIC) 40 mg Take 1 Tab by 0 Tab mouth daily. Active metFORMIN (GLUCOPHAGE) Take 500 mg 0 500 mg tablet by mouth twice daily with meals. Active INSULIN Inject 10 0 GLARGINE,HUM.REC.ANLOG Units into (LANTUS SC) area(s) as directed at bedtime daily. Active senna/docusate Take 1 Tab by 0 (SENEXON-S) 8.6/50 mg mouth three tablet times daily. HOLD DURING TRANSPLANT Active cyclobenzaprine Take 10 mg by 0 (FLEXERIL) 10 mg tablet mouth three times daily as needed. Active acyclovir (ZOVIRAX) 400 Take 800 mg 0 mg tablet by mouth twice daily. Active LORazepam (ATIVAN) 0.5 mg Take 0.5 mg 0 tablet by mouth every 6 hours as needed. Take 1-2 tabs by mouth every 6 hours as needed for nausea or anxiety. Active trimethoprim/sulfamethoxa Take 1 Tab by 0 zole (BACTRIM DS) 160/800 mouth as mg tablet Needed. One tab twice daily on Mondays and only. Active amLODIPine (NORVASC) 10 Take 10 mg by 0 mg tablet mouth daily. Active ondansetron (ZOFRAN ODT) Take 8 mg by 0 8 mg disintegrating mouth every 8 tablet hours as needed. Active oxyCODONE (ROXICODONE) 5 Take 1-2 Tabs 60 Tab 0 07/02/201 mg tablet by mouth 2 every 4-6 hours as needed. Active colchicine 0.6 mg tablet Take 1 Tab by 60 Tab 5 mouth twice 2 daily. Active methylPREDNIsolone Take 1 Tab by 21 Tab 0 (MEDROL DOSPACK) 4 mg mouth Take as 2 tablet directed. Follow instructions on package. Do not take day [...] AUTO. History of auto stem cell transplant 07/01/2011 Knee pain 06/26/2011 Gout 06/26/2011 Multiple myeloma, without mention of having achieved remission 05/26/2011 HTN (hypertension) 05/26/2011 DM (diabetes mellitus) 05/26/2011 At risk for falls 05/26/2011 Overview: [...] Aunt Maternal Grandmother Mother Alive Social History Date Tobacco Use Types Packs/Day Years Used Quit: 04/19/2001 Former Smoker Smokeless Tobacco: Former Quit: 05/18/2011 User Alcohol Use Drinks/Week oz/Week Comments Yes socially drinks beer / monthly Sex Assigned at Date Recorded Not on file Industry Job Start Date Occupation Not on file Not on file Not on file Travel End Travel History Travel Start No recent travel history available. Last Filed Vital Signs Time Taken Vital Sign Reading 07/03/2011 12:00 PM CDT Blood Pressure 122/82 07/03/2011 12:00 PM CDT Pulse 73 07/03/2011 12:00 PM CDT Temperature 36.4 C (97.5 F) 06/26/2011 11:38 AM HELP DESK ANALYST Respiratory Rate 18 07/03/2011 12:00 PM CDT Oxygen Saturation 98% - Inhaled Oxygen - Concentration 07/03/2011 4:00 AM CDT Weight 96 kg (211 lb 10.3 oz) 06/30/2011 5:30 PM CDT Height 182.9 cm (6') 07/03/2011 4:00 AM CDT Body Mass Index 28.7 Plan of Treatment Health Maintenance Due Date Last Done Comments PHYSICAL (COMPREHENSIVE) 1973 EXAM HIV SCREENING 1981 DILATED EYE EXAM 1984 FOOT EXAM 1984 HBA1C 1984 MICROALBUMIN 1984 COLORECTAL CANCER 2016 SCREENING SHINGLES RECOMBINANT 2016 VACCINE (1 of 2) INFLUENZA VACCINE 11/17/2017 03/21/2012 DTAP/TDAP VACCINES (2 - 01/06/2023 01/06/2013, 03/21/2012 Td) PNEUMONIA VACCINE (DM) Completed 04/03/2013, 01/06/2013, 03/21/2012 Results Not on filefrom Last 3 Months Insurance Payer Benefit Subscriber ID Type Phone Address Plan / Group [employer] [place] [facility] x[facility]xx Medicaid (Home) [place] [address] Advance Directives Patient has advance care planning documents, and code status on file. For more information, please contact: [facility] [address] [place] [address] Date Inactivated Comments Code Status Date Activated 07/03/2011 3:44 PM Full Code 06/30/2011 5:53 PM Provider has discussed Code Status Yes w/Patient or Family?
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
[2018-04-01] MEDS ORDERED: NS IV 1000 ML 1,000 ML IV SCH ×2 (01:39→04:02)
--- NOTE | 2018-04-01 01:47 | ED Neurological Problem ---
General Stated Complaint: SEIZURE Source: patient Exam Limitations: no limitations (KAMLA WATSON) History of Present Illness Date Seen by Provider: Apr 01, 2018 Time Seen by Provider: 01:21 Initial Comments Patient presents to ER by EMS with chief complaint of a witnessed seizure by his brother at his home. Says he didn't feel well and when his brother went in there he was doing tonic-clonic jerking motions. He had one seizure before this. He has a history of lymphoma or leukemia being treated by a doctor in [place]. He is known to Dr. Goodrich for primary care. He is not on any antiseizure medicines. Previously he was at a grocery store and he was brought to this ER for workup. EMS reports his blood sugar was 160 and he was postictal and very confused when they arrived. No loss of bowel or bladder. There is some blood on his lip but he states he did not recall biting his lip. He is not having any pain in his head or neck. No pain anywhere. Denies nausea fevers chills or being ill recently. Is not on any blood thinners just aspirin. Patient reports she did follow-up with neurology as per her prior plan had a EEG , echocardiogram, MRI all done and all were unremarkable. He was not started on any anticonvulsants. He says he started the Lyrica about the same time that he' s had his first seizure and was concerned that maybe it's causing his seizure activity. It was started by Dr. Latif, neurosurgery. He's been on it for about 2 months now. (KAMLA WATSON) Allergies and Home Medications Allergies Coded Allergies: No Known Drug Allergies (Unverified , 05/27/09) Home Medications Amlodipine Besylate 10 Mg Tablet, 10 MG PO DAILY, (Reported) Ca Cmb No.1/Vit D3/B-6/Fa/B12 1 Each Tablet, 1,000 UNIT PO DAILY, (Reported) Cefdinir 300 Mg Capsule, 300 MG PO BID Prescribed by: AUDREY RINCON on 02/04/17 0808 Colchicine 0.6 Mg Tablet, 0.6 MG PO BID PRN for GOUT PAIN, (Reported) Cyclobenzaprine Hcl 10 Mg Tablet, 10 MG PO TID PRN for MUSCLE SPASMS, (Reported) Duloxetine HCl 60 Mg Capsule., 60 MG PO DAILY, (Reported) Febuxostat 40 Mg Tablet, 40 MG PO DAILY, (Reported) Ferrous Sulfate 325 Mg Tab, 325 MG PO DAILY, (Reported) Folic Acid 0.4 Mg Tablet, 0.4 MG PO DAILY, (Reported) Gabapentin 300 Mg Capsule, 300 MG PO HS, (Reported) Glimepiride 2 Mg Tablet, 2 MG PO BID, (Reported) Metformin Hcl 1,000 Mg Tablet, 1,000 MG PO BID, (Reported) Metoprolol Tartrate 50 Mg Tablet, 50 MG PO BID, (Reported) Ondansetron 4 Mg Tab.rapdis, 4 MG SL Q4H PRN for NAUSEA/VOMITING-1ST LINE Prescribed by: KAMLA WATSON on 01/19/18 193 Pantoprazole Sodium 40 Mg Tablet.dr, 40 MG PO DAILY, (Reported) Polyethylene Glycol 17 Gm Pack, 34 GM PO DAILY PRN for CONSTIPATION, (Reported) Potassium Chloride 10 Meq Capsule.er, 10 MEQ PO DAILY Prescribed by: AUDREY RINCON on 02/04/17 1728 Sitagliptin Phosphate 100 Mg Tablet, 100 MG PO DAILY, (Reported) [Oxycodone 10MG] , 10 MG PO BID, (Reported) [Revlimid 10MG] , 10 MG PO DAILY, (Reported) Patient Home Medication List Home Medication List Reviewed: Yes (KAMLA WATSON) Review of Systems Review of Systems Constitutional: No chills, No diaphoresis Eyes: Denies Blindness, Denies Blurred Vision Ears, Nose, Mouth, Throat: denies ear pain, denies ear discharge Respiratory: No cough, No short of breath Cardiovascular: No chest pain, No palpitations Gastrointestinal: No abdominal pain, No constipation, No nausea, No vomiting Genitourinary: No discharge, No dysuria, No frequency (KAMLA WATSON) Past Zwyized-Fcnrth-Pxsdhi Hx Patient Social History Alcohol Use: Occasionally Uses Alcohol Beverage of Choice: Beer Recreational Drug Use: No Smoking Status: Former Smoker Type Used: Smokeless Tobacco Recent Foreign Travel: No Contact w/Someone Who Travel: No Recent Hopitalizations: No (KAMLA WATSON) Immunizations Up To Date Date of Pneumonia Vaccine: Jul 18, 2012 Date of Influenza Vaccine: Mar 19, 2012 (KAMLA WATSON) Past Medical History Surgeries: Yes (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, KNEE,SHOLDER) Respiratory: No Cardiac: Yes Neurological: Yes (BELLS PALSY) Reproductive Disorders: No Sexually Transmitted Disease: No Gastrointestinal: No Musculoskeletal: No Chronic Back Pain Endocrine: Yes Diabetes, Non-Insulin dep Cancer: Yes (MULTIPLE MYELOMA, STEM CELL TRANSPLANT) Psychosocial: No Blood Disorders: No (KAMLA WATSON) Physical Exam Vital Signs Vital Signs - First Documented 04/01/18 01:24 Temp 98.0 Pulse 128 Resp 20 B/P (MAP) 140/106 (117) Pulse Ox 99 O2 Delivery Room Air (ALE JUDGE MD) Vital Signs Capillary Refill : (KAMLA WATSON) Height, Weight, BMI Height: 5'8.00" Weight: 160lbs. oz. 72.217148vw; 21.09 BMI Method:Estimated General Appearance: WD/WN, no apparent distress HEENT: PERRL/EOMI, normal ENT inspection, TMs normal, pharynx normal, other Neck: non-tender, full range of motion, supple, normal inspection Respiratory: chest non-tender, lungs clear, normal breath sounds, no respiratory distress, no accessory muscle use Cardiovascular: normal peripheral pulses, regular rate, rhythm, no edema Peripheral Pulses: 2+ Radial Pulses (R), 2+ Radial Pulses (L) Gastrointestinal: normal bowel sounds, non tender, soft (KAMLA WATSON) Progress/Results/Core Measures Results/Orders Lab Results Laboratory Tests Test 04/01/18 01:45 04/01/18 02:39 Range/Units White Blood Count 5.0 4.3-11.0 10^3/uL Red Blood Count 3.95 L 4.35-5.85 10^6/uL Hemoglobin 11.7 L 13.3-17.7 G/DL Hematocrit 34 L 40-54 % Mean Corpuscular Volume 85 80-99 FL Mean Corpuscular Hemoglobin 30 25-34 PG Mean Corpuscular Hemoglobin Concent 35 32-36 G/DL Red Cell Distribution Width 14.3 10.0-14.5 % Platelet Count 178 130-400 10^3/uL Mean Platelet Volume 8.8 7.4-10.4 FL Neutrophils (%) (Auto) 57 42-75 % Lymphocytes (%) (Auto) 31 12-44 % Monocytes (%) (Auto) 11 0-12 % Eosinophils (%) (Auto) 1 0-10 % Basophils (%) (Auto) 0 0-10 % Neutrophils # (Auto) 2.8 1.8-7.8 X 10^3 Lymphocytes # (Auto) 1.6 1.0-4.0 X 10^3 Monocytes # (Auto) 0.5 0.0-1.0 X 10^3 Eosinophils # (Auto) 0.0 0.0-0.3 10^3/uL Basophils # (Auto) 0.0 0.0-0.1 10^3/uL Sodium Level 130 L 135-145 MMOL/L Potassium Level 3.3 L 3.6-5.0 MMOL/L Chloride Level 94 L 98-107 MMOL/L Carbon Dioxide Level 19 L 21-32 MMOL/L Anion Gap 17 H 5-14 MMOL/L Blood Urea Nitrogen 12 7-18 MG/DL Creatinine 1.33 H 0.60-1.30 MG/DL Estimat Glomerular Filtration Rate > 60 BUN/Creatinine Ratio 9 Glucose Level 164 H 70-105 MG/DL Calcium Level 8.1 L 8.5-10.1 MG/DL Corrected Calcium 8.4 L 8.5-10.1 MG/DL Magnesium Level 0.8 *L 1.8-2.4 MG/DL Total Bilirubin 1.3 H 0.1-1.0 MG/DL Aspartate Amino Transf (AST/SGOT) 128 H 5-34 U/L Alanine Aminotransferase (ALT/SGPT) 82 H 0-55 U/L Alkaline Phosphatase 68 40-136 U/L Troponin I < 0.30 <0.30 NG/ML Total Protein 10.0 H 6.4-8.2 GM/DL Albumin 3.6 3.2-4.5 GM/DL Serum Alcohol < 10 <10 MG/DL Urine Color BLADIMIR H Urine Clarity SLIGHTLY CLOUDY Urine pH 6 5-9 Urine Specific [place] 1.015 L 1.016-1.022 Urine Protein 3+ H NEGATIVE Urine Glucose (UA) NEGATIVE NEGATIVE Urine Ketones 1+ H NEGATIVE Urine Nitrite POSITIVE H NEGATIVE Urine Bilirubin 2+ H NEGATIVE Urine Urobilinogen 8 H NORMAL MG/DL Urine Leukocyte Esterase 1+ H NEGATIVE Urine RBC (Auto) 2+ H NEGATIVE Urine RBC 2-5 H /HPF Urine WBC 0-2 /HPF Urine Squamous Epithelial Cells 2-5 /HPF Urine Crystals NONE /LPF Urine Bacteria TRACE /HPF Urine Casts PRESENT /LPF Urine Hyaline Casts 5-10 H /LPF Urine Mucus LARGE H /LPF Urine Culture Indicated YES (ALE JUDGE MD) Medications Given in ED Current Medications Medications Dose Ordered Sig/Citlali Route Start Time Stop Time Status Last Admin Dose Admin Levetiracetam 500 mg/Sodium Chloride 105 ml @ 210 mls/hr ONCE ONCE IV 04/01/18 05:15 04/01/18 05:44 DC 04/01/18 05:20 210 MLS/HR Lorazepam 1 mg ONCE ONCE IVP 04/01/18 05:15 04/01/18 05:16 DC 04/01/18 05:11 1 MG (ALE JUDGE MD) Vital Signs/I&O 04/01/18 04/01/18 01:24 02:02 Temp 98.0 Pulse 128 124 133 137 Resp 20 B/P (MAP) 140/106 (117) 114/79 (91) 105/70 (82) 86/58 (67) Pulse Ox 99 O2 Delivery Room Air (ALE JUDGE MD) Progress Progress Note #1: Time: 01:45 Progress Note Acutely he appears not to be in distress but he does have tachycardia in the 130s on arrival. We'll get an EKG, troponin and give him a bag of fluids and watch him. Check some labs and urine. After reviewing the note from this officer in January for similar situation the patient that time had positive orthostatics and were not sure if he is having a seizure or had a syncopal episode. He received a CT scan of the head was unremarkable that time. He did have a lytic lesion seen in his spine and was recommended outpatient follow-up. Consultation at that time was made with neurology at [facility] and they recommended MRI of the brain, echocardiogram and EEG outpatient or observation stay and done in the hospital and the patient had elected to do an outpatient. Progress Note #2: Time: 03:06 Progress Note Orthostatics were positive so the plan is to finish his fluids and then repeat them. If they are still positive we'll give him another liter. 30 mL/kg be 2500 cc. He does appear to have a UTI so we'll treat him with Rocephin. Progress Note #3: Time: 05:19 Progress Note Patient was eager to go home but we are fixing his fluid electrolyte imbalances while he was here in the ER and he just completed a set of orthostatic vitals were better no longer positive when he had about a 3 second tonic-clonic seizure. He did appear to bite his tongue. He is not nauseated or vomiting. He is postictal now. We have started 500 mg of Keppra IV as well as a milligram of Ativan. We have effected a transfer to [place] where his primary care team and neurology team is for neurology consult and inpatient management of his electrolyte abnormalities. He is pending transfer and has a bed. (KAMLA WATSON) Progress Note : Time: 07:30 Progress Note Patient came out of the room and stated that he was not going to go to [place] and just wanted to go home. We did discuss with him at length regarding concerns and the need for admission and patient still declined. He was adamant about not staying. We did call patient's brother who came and then tried to talk him into staying as well but the patient still declined and stated he just wanted to go home. We did discuss the risk of leaving AGAINST MEDICAL ADVICE including and patient still did not want to stay. Left AGAINST MEDICAL ADVICE. AMA form signed and on chart. (ALE JUDGE MD) Initial ECG Impression Date: Apr 01, 2018 Initial ECG Impression Time: 01:35 Initial ECG Rate: 124 Initial ECG Rhythm: S.Tach Initial ECG Intervals: Normal Initial ECG Impression: Nonspecific Changes Initial ECG Comparisson: Unchanged Comment Sinus tachycardia with out atrial fibrillation or flutter. Regular rhythm with regular interval P waves seen. No ST elevation or depression. Artifact seen. (KAMLA WATSON) Diagnostic Imaging Diagonstic Imaging: Xray Plain Films/CT/US/NM/MRI: chest (1v) Comments Unremarkable chest x-ray Reviewed: Reviewed by Me (KAMLA WATSON) Transfer of Care Time: 06:27 Care transferred to: Dr. Judge (KAMLA WATSON) Departure Impression Primary Impression: Convulsions Qualified Codes: R56.9 - Unspecified convulsions Additional Impressions: Orthostasis Hyponatremia Acute hypokalemia Disposition: 07 AGAINST MEDICAL ADVICE Condition: Against Medical Advice Transfer Time Spoke to Accepting Phy: 05:30 Transfer Progress Notes Discussed the case with Dr. Singh internal medicine and he agrees to accept the patient. Transfer Facility: [place], [place] Method of Transfer: EMS (KAMLA WATSON) Departure-Patient Inst. Decision time for Depature: 07:30 (ALE JUDGE MD) Referrals: NO,LOCAL PHYSICIAN (PCP/Family) Primary Care Physician Add. Discharge Instructions: Left AGAINST MEDICAL ADVICE KAMLA WATSON Apr 01, 2018 01:47 ALE JUDGE MD Apr 01, 2018 07:32
[2018-04-01 01:56] LABS: BASOPHILS % (AUTO) 0 % (0-10); EOSINOPHILS % (AUTO) 1 % (0-10); HEMATOCRIT 34 % (40-54); HEMOGLOBIN 11.7 G/DL (13.3-17.7); LYMPHOCYTES # (AUTO) 1.6 X 10^3 (1.0-4.0); LYMPHOCYTES % (AUTO) 31 % (12-44); MEAN CORPUSCULAR HEMOGLOBIN 30 PG (25-34); MEAN CORPUSCULAR HGB CONC 35 G/DL (32-36); MEAN CORPUSCULAR VOLUME 85 FL (80-99); MEAN PLATELET VOLUME 8.8 FL (7.4-10.4); MONOCYTES # (AUTO) 0.5 X 10^3 (0.0-1.0); MONOCYTES % (AUTO) 11 % (0-12); NEUTROPHILS # (AUTO) 2.8 X 10^3 (1.8-7.8); NEUTROPHILS % (AUTO) 57 % (42-75); PLATELET COUNT 178 10^3/uL (130-400); RED BLOOD COUNT 3.95 10^6/uL (4.35-5.85); RED CELL DISTRIBUTION WIDTH 14.3 % (10.0-14.5)
[2018-04-01 02:02] VITALS: BP_SYST 105; BP_SYST 114; BP_SYST 86; BP_DIAS 58; BP_DIAS 70; BP_DIAS 79
[2018-04-01 02:15] LABS: ALANINE AMINOTRANSFERASE 82 U/L (0-55); ALBUMIN 3.6 GM/DL (3.2-4.5); ALKALINE PHOSPHATASE 68 U/L (40-136); BILIRUBIN,TOTAL 1.3 MG/DL (0.1-1.0); BUN/CREATININE RATIO 9; CALCIUM 8.1 MG/DL (8.5-10.1); CARBON DIOXIDE 19 MMOL/L (21-32); CHLORIDE 94 MMOL/L (98-107); CREATININE SERUM 1.33 MG/DL (0.60-1.30); GFR ESTIMATED > 60; GLUCOSE 164 MG/DL (70-105); POTASSIUM 3.3 MMOL/L (3.6-5.0); SODIUM 130 MMOL/L (135-145)
[2018-04-01 02:44] LABS: CLARITY,URINE SLIGHTLY CLOUDY; COLOR,URINE AMBER; GLUCOSE, URINE (UA) NEGATIVE (NEGATIVE); KETONES,URINE 1+ (NEGATIVE); LEUKOCYTE ESTERASE ,URINE 1+ (NEGATIVE); NITRITE,URINE POSITIVE (NEGATIVE); PH,URINE 6 (5-9); PROTEIN,URINE 3+ (NEGATIVE); UROBILINOGEN,URINE 8 MG/DL (NORMAL)
[2018-04-01 02:55] LABS: BACTERIA,URINE TRACE /HPF; BILIRUBIN,URINE 2+ (NEGATIVE); WBC,URINE 0-2 /HPF
[2018-04-01] MEDS: MAGNESIUM 1 GM/100 ML IVPB 100 ML IV SCH ×2 (03:55→06:00)
[2018-04-01] MEDS ORDERED: LORazepam INJ 2 MG/ML (ATIVAN) VIAL ONE (05:08)
[2018-04-01] MEDS ORDERED: LEVETIRACETAM 500 MG/5 ML (KEPPRA) VIAL IV ONE (05:09)
[2018-04-01] MEDS ORDERED: NS (IVPB) 100 ML ONE (05:14)
[2018-04-01] MEDS ORDERED: LEVETIRACETAM INJECTION 500 MG in NS (IVPB) 100 ML IV ONE (05:15)
[2018-04-01] MEDS ORDERED: LORazepam INJ 2 MG/ML (ATIVAN) VIAL IVP ONE (05:15)
--- NOTE | 2018-04-01 07:06 | Diagnostic Imaging Report ---
EXAMINATION: Portable erect AP chest at 1:56 AM INDICATION: Seizure The heart size is within normal limits and stable when compared to 01/19/2018. The lungs are clear. There is no evidence for failure, pneumonia or for pleural effusion. The mediastinum is not widened. The osseous structures are intact. The left-sided Port-A-Cath seen previously remains in good position. IMPRESSION: Stable chest. There has been no adverse change since the prior exam. There is no acute abnormality identified. Dictated by: Dictated on workstation # [id number]
[2018-04-01 07:26] VITALS: BP 142/97
== END 2018-04-01 07:26 | disposition left against medical advice (07) ==
LOC: EDUNIT# 01:24 → ER 01:27
DX: R56.9 Unspecified convulsions (principal); I95.1 Orthostatic hypotension; E87.1 Hypo-osmolality and hyponatremia; E87.6 Hypokalemia; E11.9 Type 2 diabetes mellitus without complications; Z79.4 Long term (current) use of insulin; Z87.891 Personal history of nicotine dependence; Z98.890 Other specified postprocedural states; Z85.79 Personal history of other malignant neoplasms of lymphoid, hematopoietic and related tissues; Z94.84 Stem cells transplant status
CPT/HCPCS: 36415; 71045; 80053; 80320; 81000; 83735; 84484; 85025; 87088; 93005

== ENCOUNTER 2018-04-26 20:18 | Emergency (ER) | payer MEDICARE ==
[~2018-04-26] VITALS: Ht 185.4 cm; Wt 95.3 kg
[2018-04-26] MEDS ORDERED: NS IV 1000 ML 1,000 ML IV ONE ×2 (20:24→21:19)
[2018-04-26] MEDS ORDERED: LEVETIRACETAM INJECTION 1,000 MG in NS (IVPB) 100 ML IV SCH (20:45)
[2018-04-26 20:58] LABS: BASOPHILS % (AUTO) 0 % (0-10); EOSINOPHILS % (AUTO) 0 % (0-10); HEMATOCRIT 36 % (40-54); HEMOGLOBIN 12.1 G/DL (13.3-17.7); LYMPHOCYTES # (AUTO) 2.1 X 10^3 (1.0-4.0); LYMPHOCYTES % (AUTO) 30 % (12-44); MEAN CORPUSCULAR HEMOGLOBIN 29 PG (25-34); MEAN CORPUSCULAR HGB CONC 34 G/DL (32-36); MEAN CORPUSCULAR VOLUME 87 FL (80-99); MEAN PLATELET VOLUME 9.3 FL (7.4-10.4); MONOCYTES # (AUTO) 0.8 X 10^3 (0.0-1.0); MONOCYTES % (AUTO) 12 % (0-12); NEUTROPHILS # (AUTO) 3.9 X 10^3 (1.8-7.8); NEUTROPHILS % (AUTO) 57 % (42-75); PLATELET COUNT 127 10^3/uL (130-400); RED CELL DISTRIBUTION WIDTH 14.6 % (10.0-14.5); WHITE BLOOD COUNT 6.8 10^3/uL (4.3-11.0)
--- NOTE | 2018-04-26 21:18 | Diagnostic Imaging Report ---
PATIENT HISTORY: Seizure. TECHNIQUE: Frontal view of the chest COMPARISON: 04/01/2018 FINDINGS: The tip of the left Port-A-Cath projects over the mid SVC. Lung volumes are normal. There is mild atelectasis in the right lung base. No pleural effusion or pneumothorax is seen. The cardiac silhouette is normal in size. No acute osseous abnormality is seen. IMPRESSION: No acute pulmonary abnormality seen. Dictated by: Dictated on workstation # [id number]
[2018-04-26 21:19] LABS: ALANINE AMINOTRANSFERASE 49 U/L (0-55); ALBUMIN 3.8 GM/DL (3.2-4.5); ALKALINE PHOSPHATASE 65 U/L (40-136); BILIRUBIN,TOTAL 1.7 MG/DL (0.1-1.0); BUN/CREATININE RATIO 7; CALCIUM 8.2 MG/DL (8.5-10.1); CARBON DIOXIDE 16 MMOL/L (21-32); CHLORIDE 89 MMOL/L (98-107); CREATINE KINASE 740 U/L (30-200); CREATININE SERUM 2.13 MG/DL (0.60-1.30); GFR ESTIMATED 40; GLUCOSE 166 MG/DL (70-105); POTASSIUM 3.3 MMOL/L (3.6-5.0); SODIUM 131 MMOL/L (135-145)
--- NOTE | 2018-04-26 21:22 | Diagnostic Imaging Report ---
PROCEDURE: CT head and CT cervical spine without contrast. TECHNIQUE: Multiple contiguous axial images were obtained through the brain and cervical spine without the use of intravenous contrast. Sagittal and coronal reformations through the cervical spine were then performed. INDICATION: Seizure COMPARISON: 01/19/2018 FINDINGS: CT head: The ventricles and cortical sulci appear age-appropriate. There is calcification along the dural falx. No CT evidence of acute territorial ischemia seen. There is no midline shift or mass effect. No acute intracranial hemorrhage is seen. CT cervical spine: There is straightening of the cervical lordosis without significant spondylolisthesis seen. There is union of the anterior osteophytes at multiple levels, consistent with diffuse idiopathic skeletal hyperostosis. There are mild degenerative changes. The vertebral body heights are preserved. No acute fracture is seen in the cervical spine. No bony fragments or hyperdense fluid collections are seen in the spinal canal. There is mild spinal canal narrowing, which appears chronic. The paraspinous soft tissues demonstrate no acute abnormality. IMPRESSION: 1. No acute intracranial hemorrhage or CT evidence of acute territorial ischemia. 2. Degenerative changes in the cervical spine with no acute fracture seen. There is diffuse idiopathic skeletal hyperostosis. Dictated by: Dictated on workstation # [id number]
[2018-04-26 21:26] LABS: CREATINE KINASE MB 6.1 NG/ML (<6.6); MYOGLOBIN SERUM 394.4 NG/ML (10.0-92.0)
--- NOTE | 2018-04-26 21:35 | ED Neurological Problem ---
General Chief Complaint: Neurological Problems Stated Complaint: SEIZURE Nursing Triage Note: PT PRESENTS TO THE ED VIA EMS ON STRETHCER, EMS REPORTS FROM ON SCENE BYSTANDER THAT THE PT WAS STANDING IN FRONT OF HIS FRIDGE WITH THE DOOR OPEN WHEN HE SUDDENLY COLLAPSED AND BEGAN TO SEIZE FOR AN ESTIMATED 30-45 SECONDS. BLOOD NOTED IN THE PT'S FACIAL HAIR UPON ARRIVAL, PT IS AAOX4 UPON ARRIVAL. Nursing Sepsis Screen: No Definite Risk Source: patient (VERY LIMITED HISTORIAN), EMS, old records Exam Limitations: clinical condition History of Present Illness Date Seen by Provider: Apr 26, 2018 Time Seen by Provider: 20:18 Initial Comments PT ARRIVES VIA EMS FROM HOME PT REPORTEDLY HAD A SEIZURE AT HOME, LASTING 90 SECONDS PT FELL FORWARD INTO OPEN REFRIGERATOR PT WAS SITTING ON FLOOR AGAINST CABINETS WHEN EMS ARRIVED, AND APPEARED POST ICTAL TO EMS STAFF PT WAS NOT ANSWERING QUESTIONS FOR EMS EMS REPORTS THAT PT REFUSED IV AND MONITOR AND REPORTED TO THEM THAT HE DID NOT WANT TO COME TO ER, NO CERVICAL COLLAR OR ACCUCHECK DONE. PT HAS HAD 4 SEIZURES IN THE LAST 30 DAYS--PT HAS NOT TAKEN HIS MEDICATION FOR THE LAST 2 WEEKS PT IS SUPPOSED TO BE ON LYRICA AND GABAPENTIN PT DENIES PAIN ANYWHERE PT HAS AN ABRASION ON TONGUE NO INCONTINENCE PT WAS HERE 04/01/18 FOR SEIZURE, WHICH WAS ONLY HIS SECOND SEIZURE AT THAT TIME --FIRST ONE WAS 01/19/[id number]--FAMILY NOW HERE. PT STATES THAT HE LIVES ALONE, BUT 2 SONS REPORT THAT HE LIVES WITH ANOTHER SON ( WHO IS NOT PRESENT IN ER) THEY REPORT THAT PT HAS HAD 4 SEIZURES TOTAL--NEW ONSET PT HAS BEEN DX WITH MULTIPLE MYELOMA, PER FAMILY PT IS ON MORPHINE AND OXYCODONE--BOTH SINCE 01/2018--FILLED MORPHINE ON 04/25/18 PCP: DR. SOUTH" IN [place] Allergies and Home Medications Allergies Coded Allergies: No Known Drug Allergies (Unverified , 05/27/09) Home Medications Amlodipine Besylate 10 Mg Tablet, 10 MG PO DAILY, (Reported) Ca Cmb No.1/Vit D3/B-6/Fa/B12 1 Each Tablet, 1,000 UNIT PO DAILY, (Reported) Cefdinir 300 Mg Capsule, 300 MG PO BID Prescribed by: AUDREY RINCON on 02/04/17 1728 Colchicine 0.6 Mg Tablet, 0.6 MG PO BID PRN for GOUT PAIN, (Reported) Cyclobenzaprine Hcl 10 Mg Tablet, 10 MG PO TID PRN for MUSCLE SPASMS, (Reported) Duloxetine HCl 60 Mg Capsule.dr, 60 MG PO DAILY, (Reported) Febuxostat 40 Mg Tablet, 40 MG PO DAILY, (Reported) Ferrous Sulfate 325 Mg Tab, 325 MG PO DAILY, (Reported) Folic Acid 0.4 Mg Tablet, 0.4 MG PO DAILY, (Reported) Gabapentin 300 Mg Capsule, 300 MG PO HS, (Reported) Glimepiride 2 Mg Tablet, 2 MG PO BID, (Reported) Metformin Hcl 1,000 Mg Tablet, 1,000 MG PO BID, (Reported) Metoprolol Tartrate 50 Mg Tablet, 50 MG PO BID, (Reported) Ondansetron 4 Mg Tab.rapdis, 4 MG SL Q4H PRN for NAUSEA/VOMITING-1ST LINE Prescribed by: KAMLA WATSON on 01/19/18 193 Pantoprazole Sodium 40 Mg Tablet.dr, 40 MG PO DAILY, (Reported) Polyethylene Glycol 17 Gm Pack, 34 GM PO DAILY PRN for CONSTIPATION, (Reported) Potassium Chloride 10 Meq Capsule.er, 10 MEQ PO DAILY Prescribed by: AUDREY RINCON on 02/04/17 1728 Sitagliptin Phosphate 100 Mg Tablet, 100 MG PO DAILY, (Reported) [Oxycodone 10MG] , 10 MG PO BID, (Reported) [Revlimid 10MG] , 10 MG PO DAILY, (Reported) Patient Home Medication List Home Medication List Reviewed: Yes Review of Systems Review of Systems Constitutional: no symptoms reported Eyes: No Symptoms Reported Ears, Nose, Mouth, Throat: see HPI Respiratory: no symptoms reported Cardiovascular: no symptoms reported Gastrointestinal: no symptoms reported Genitourinary: no symptoms reported Musculoskeletal: no symptoms reported Skin: no symptoms reported Psychiatric/Neurological: See HPI, Cognitive Dysfunction (SLOW MENTATION AND NO RECOLLECTION OF EVENT, SOMEWHAT CONFUSED ON ARRIVAL--APPEARS POST ICTAL. ) Endocrine: No Symptoms Reported Hematologic/Lymphatic: See HPI Past Bgydsso-Xgzbwi-Ztjvek Hx Patient Social History Alcohol Use: Occasionally Uses Number of Drinks Today: AA Alcohol Beverage of Choice: Beer Recreational Drug Use: No Smoking Status: Current Everyday Smoker Type Used: Smokeless Tobacco 2nd Hand Smoke Exposure: No Recent Foreign Travel: No Contact w/Someone Who Travel: No Recent Infectious Disease Expo: No Recent Hopitalizations: No Immunizations Up To Date Date of Pneumonia Vaccine: Jul 18, 2012 Date of Influenza Vaccine: Mar 19, 2012 Past Medical History Surgeries: Yes (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, KNEE,SHOLDER) Neurological, Orthopedic Respiratory: No Cardiac: Yes Hypertension Neurological: Yes (BELLS PALSY. SEIZURES--NEW ONSET ) Seizure Disorder Reproductive Disorders: No Sexually Transmitted Disease: No Genitourinary: No Gastrointestinal: No Musculoskeletal: Yes Chronic Back Pain Endocrine: Yes Diabetes, Non-Insulin dep HEENT: No Cancer: Yes (MULTIPLE MYELOMA, STEM CELL TRANSPLANT) Did You Recieve Any Treatments: Yes Psychosocial: No Integumentary: No Blood Disorders: No Physical Exam Vital Signs Capillary Refill : NONE Height, Weight, BMI Height: 6'1.00" Weight: 210lbs. oz. 95.508404op; 21.09 BMI Method:Stated General Appearance: WD/WN, no apparent distress, other (SLOW MENTATION, SLIGHTLY CONFUSED, DOES NOT RECALL EVENTS. SLIGHTLY TREMULOUS) HEENT: PERRL/EOMI, TMs normal, other (ABRASION TO TONGUE) Neck: non-tender, full range of motion, supple, normal inspection Respiratory: chest non-tender, normal breath sounds, no respiratory distress, no accessory muscle use Cardiovascular: normal peripheral pulses, no edema, no JVD, no murmur, tachycardia Gastrointestinal: normal bowel sounds, non tender, soft Back: normal inspection, no CVA tenderness, no vertebral tenderness Extremities: normal inspection, no pedal edema Neurologic/Psychiatric: rate and cost analyst II-XII nml as tested, no motor/sensory deficits, alert, other (CONFUSED TO EVENTS, MENTATION NOTED ABOVE. ) Crainal Nerves: normal hearing, PERRL Motor/Sensory: no motor deficit, no sensory deficit, no pronator drift Skin: normal color, warm/dry Progress/Results/Core Measures Results/Orders Lab Results Laboratory Tests Test 04/26/18 20:26 04/26/18 20:48 04/26/18 22:14 Range/Units Glucometer 139 H 70-110 MG/DL White Blood Count 6.8 4.3-11.0 10^3/uL Red Blood Count 4.15 L 4.35-5.85 10^6/uL Hemoglobin 12.1 L 13.3-17.7 G/DL Hematocrit 36 L 40-54 % Mean Corpuscular Volume 87 80-99 FL Mean Corpuscular Hemoglobin 29 25-34 PG Mean Corpuscular Hemoglobin Concent 34 32-36 G/DL Red Cell Distribution Width 14.6 H 10.0-14.5 % Platelet Count 127 L 130-400 10^3/uL Mean Platelet Volume 9.3 7.4-10.4 FL Neutrophils (%) (Auto) 57 42-75 % Lymphocytes (%) (Auto) 30 12-44 % Monocytes (%) (Auto) 12 0-12 % Eosinophils (%) (Auto) 0 0-10 % Basophils (%) (Auto) 0 0-10 % Neutrophils # (Auto) 3.9 1.8-7.8 X 10^3 Lymphocytes # (Auto) 2.1 1.0-4.0 X 10^3 Monocytes # (Auto) 0.8 0.0-1.0 X 10^3 Eosinophils # (Auto) 0.0 0.0-0.3 10^3/uL Basophils # (Auto) 0.0 0.0-0.1 10^3/uL Sodium Level 131 L 135-145 MMOL/L Potassium Level 3.3 L 3.6-5.0 MMOL/L Chloride Level 89 L 98-107 MMOL/L Carbon Dioxide Level 16 L 21-32 MMOL/L Anion Gap 26 H 5-14 MMOL/L Blood Urea Nitrogen 15 7-18 MG/DL Creatinine 2.13 H 0.60-1.30 MG/DL Estimat Glomerular Filtration Rate 40 BUN/Creatinine Ratio 7 Glucose Level 166 H 70-105 MG/DL Calcium Level 8.2 L 8.5-10.1 MG/DL Corrected Calcium 8.4 L 8.5-10.1 MG/DL Magnesium Level 1.0 *L 1.8-2.4 MG/DL Total Bilirubin 1.7 H 0.1-1.0 MG/DL Aspartate Amino Transf (AST/SGOT) 116 H 5-34 U/L Alanine Aminotransferase (ALT/SGPT) 49 0-55 U/L Alkaline Phosphatase 65 40-136 U/L Total Creatine Kinase 740 H 30-200 U/L Creatine Kinase MB 6.1 <6.6 NG/ML Myoglobin 394.4 H 10.0-92.0 NG/ML Troponin I < 0.028 <0.028 NG/ML Total Protein 11.0 H 6.4-8.2 GM/DL Albumin 3.8 3.2-4.5 GM/DL Serum Alcohol < 10 <10 MG/DL Blood Gas Puncture Site LEFT RADIAL Blood Gas Patient Temperature 97.3 Arterial Blood pH 7.46 H 7.37-7.43 Arterial Blood Partial Pressure CO2 32 L 35-45 MMHG Arterial Blood Partial Pressure O2 83 79-93 MMHG Arterial Blood HCO3 23 23-27 MMOL/L Arterial Blood Total CO2 24.1 21.0-31.0 MMOL/L Arterial Blood Oxygen Saturation 97 94-100 % Arterial Blood Base Excess -0.4 -2.5-2.5 MMOL/L Jose Test POSITIVE Blood Gas Ventilator Setting NO Blood Gas Inspired Oxygen ROOM AIR My Orders Orders - STACEY CERNA DO Accucheck Stat ONCE (04/26/18 20:24) Monitor-Rhythm Ecg Trace Only (04/26/18 20:24) Alcohol (04/26/18 20:24) Cbc With Automated Diff (04/26/18 20:24) Comprehensive Metabolic Panel (04/26/18 20:24) Creatine Kinase (04/26/18 20:24) Creatine Kinase Mb (04/26/18 20:24) Magnesium (04/26/18 20:24) Troponin I (04/26/18 20:24) Myoglobin Serum (04/26/18 20:24) Saline Lock/Iv-Start (04/26/18 20:24) Ns Iv 1000 Ml (Sodium Chloride 0.9%) (04/26/18 20:24) Ekg Tracing (04/26/18 20:24) Chest 1 View, Ap/Pa Only (04/26/18 20:24) Ct Head/Cervical Spine Wo (04/26/18 20:34) Levetiracetam Injection (Keppra Injectio (04/26/18 20:45) Saline Lock/Iv-Start (04/26/18 21:19) Ns Iv 1000 Ml (Sodium Chloride 0.9%) (04/26/18 21:19) Magnesium 1 Gm/100 Ml Ivpb (Magnesium Vick (04/26/18 21:30) Arterial Blood Gas (04/26/18 21:50) Ns W/Kcl 20 Meq/L (Ns Iv W/Kcl 20 Meq/L) (04/26/18 22:15) Arterial Blood Draw (04/26/18 ) Iv Infusion <= First Hr Ed (04/26/18 ) Medications Given in ED Vital Signs/I&O Blood Pressure Mean: 123 FSBG Bedside Testing Finger Stick Blood Glucose: 139 Blood Glucose Action Taken: provider notified Initial ECG Impression Date: Apr 26, 2018 Initial ECG Impression Time: 21:03 Initial ECG Rate: 125 Initial ECG Rhythm: S.Tach Initial ECG Impression: Nonspecific Changes Diagnostic Imaging Comments CT HEAD/CERVICAL SPINE--NO ACUTE PROCESS, PER RADIOLOGIST REPORT CXR--NO ACUTE PROCESS, PER RADIOLOGIST REPORT @ 2118 Reviewed: Reviewed by Mi Departure Communication (Admissions) 2147--[facility]ED [facility]--SPOKE WITH DR. WEBB, ACCEPTS PT FOR ADMIT/TRANSFER Impression Primary Impression: SEIZURES--RECENT ONSET Additional Impressions: Multiple myeloma Hypomagnesemia Cervical strain Electrolyte imbalance RENAL FAILURE/INSUFFICIENCY Disposition: 02 XFER SHT-TRM HOSP Condition: Stable Departure-Patient Inst. Referrals: NO,LOCAL PHYSICIAN (PCP/Family) Primary Care Physician STACEY CERNA DO Apr 26, 2018 21:35
[2018-04-26] MEDS: MAGNESIUM 1 GM/100 ML IVPB 100 ML IV SCH ×3 (21:39→23:44)
[2018-04-26] MEDS ORDERED: NS W/KCL 20 MEQ/L 1,000 ML IV SCH (22:15)
[2018-04-26 22:20] LABS: ABG BASE EXCESS -0.4 MMOL/L (-2.5-2.5); ABG OXYGEN SATURATION 97 % (94-100); ABG PCO2 32 MMHG (35-45); ABG PH 7.46 (7.37-7.43); ABG PO2 83 MMHG (79-93); ABG TCO2 24.1 MMOL/L (21.0-31.0)
[2018-04-26 22:21] LABS: ALLENS TEST POSITIVE; INSPIRED O2 ROOM AIR; PATIENT TEMP 97.3; VENTILATOR NO
[2018-04-27 00:11] VITALS: BP 139/103
== END 2018-04-27 00:11 | disposition short-term general hospital (02) ==
LOC: EDUNIT# 20:18 → ER 20:19
DX: S16.1XXA Strain of muscle, fascia and tendon at neck level, initial encounter (principal); G40.909 Epilepsy, unspecified, not intractable, without status epilepticus; C90.00 Multiple myeloma not having achieved remission; E83.42 Hypomagnesemia; E87.8 Other disorders of electrolyte and fluid balance, not elsewhere classified; N28.9 Disorder of kidney and ureter, unspecified; G51.0 Bell's palsy; E11.9 Type 2 diabetes mellitus without complications; F17.200 Nicotine dependence, unspecified, uncomplicated; Z79.4 Long term (current) use of insulin; Z85.79 Personal history of other malignant neoplasms of lymphoid, hematopoietic and related tissues; Z94.84 Stem cells transplant status
CPT/HCPCS: 36415; 36600; 70450; 71045; 72125; 80053; 80320; 82550; 82553; 82805; 82962; 83735; 83874; 84484; 85025; 93005; 93041; 96365; 96375

== ENCOUNTER 2019-03-24 20:17 | Emergency (ER) | payer MEDICARE ==
[~2019-03-24] VITALS: Ht 182 cm; Wt 82.7 kg
[2019-03-24 20:28] LABS: HEMOGLOBIN 10.9 G/DL (13.3-17.7); MEAN PLATELET VOLUME 8.1 FL (7.4-10.4); RED CELL DISTRIBUTION WIDTH 14.4 % (10.0-14.5); WHITE BLOOD COUNT 4.5 10^3/uL (4.3-11.0)
--- NOTE | 2019-03-24 20:29 | ED Neurological Problem ---
General Chief Complaint: Neurological Problems Stated Complaint: SEIZURE Source: patient Exam Limitations: no limitations History of Present Illness Date Seen by Provider: Mar 24, 2019 Time Seen by Provider: 20:09 Initial Comments Patient presents ER by EMS for history of seizure. He has a known seizure disorder. He says he regularly takes gabapentin for seizures and has not been out of this medication. He is still mildly postictal per EMS when they arrived. Family says it lasted about 1-2 minutes. He denies being sick with anything lately having any fevers chills dysuria nausea vomiting or pain. Still having a difficult time getting medical history telling his med list Further interview he still states he followed up with neurology outpatient since we last saw him a year ago. He is still not on anticonvulsants other than gabapentin. He does not endorse any review of systems. He says he drinks beer every day or 2-3 at time. His last drink was 2 days ago. He Denies delirium tremens and withdrawal seizures. Family friend arrives and gives a history that yesterday he was probably fine but when he went to visit today the patient was acting very dehydrated. Drinking water which is unusual for him. He said he has had no fevers cough dysuria or other acute concerns that the friend is aware of. Allergies and Home Medications Allergies Coded Allergies: No Known Drug Allergies (Unverified , 05/27/09) Home Medications Amlodipine Besylate 10 Mg Tablet, 10 MG PO DAILY, (Reported) Ca Cmb No.1/Vit D3/B-6/Fa/B12 1 Each Tablet, 1,000 UNIT PO DAILY, (Reported) Cefdinir 300 Mg Capsule, 300 MG PO BID Prescribed by: AUDREY RINCON on 02/04/17 1728 Colchicine 0.6 Mg Tablet, 0.6 MG PO BID PRN for GOUT PAIN, (Reported) Cyclobenzaprine Hcl 10 Mg Tablet, 10 MG PO TID PRN for MUSCLE SPASMS, (Reported) Duloxetine HCl 60 Mg Capsule.dr, 60 MG PO DAILY, (Reported) Febuxostat 40 Mg Tablet, 40 MG PO DAILY, (Reported) Ferrous Sulfate 325 Mg Tab, 325 MG PO DAILY, (Reported) Folic Acid 0.4 Mg Tablet, 0.4 MG PO DAILY, (Reported) Gabapentin 300 Mg Capsule, 300 MG PO HS, (Reported) Glimepiride 2 Mg Tablet, 2 MG PO BID, (Reported) Metformin Hcl 1,000 Mg Tablet, 1,000 MG PO BID, (Reported) Metoprolol Tartrate 50 Mg Tablet, 50 MG PO BID, (Reported) Ondansetron 4 Mg Tab.rapdis, 4 MG SL Q4H PRN for NAUSEA/VOMITING-1ST LINE Prescribed by: KAMLA WATSON on 01/19/18 193 Pantoprazole Sodium 40 Mg Tablet.dr, 40 MG PO DAILY, (Reported) Polyethylene Glycol 17 Gm Pack, 34 GM PO DAILY PRN for CONSTIPATION, (Reported) Potassium Chloride 10 Meq Capsule.er, 10 MEQ PO DAILY Prescribed by: AUDREY RINCON on 02/04/17 1728 Sitagliptin Phosphate 100 Mg Tablet, 100 MG PO DAILY, (Reported) [Oxycodone 10MG] , 10 MG PO BID, (Reported) [Revlimid 10MG] , 10 MG PO DAILY, (Reported) Patient Home Medication List Home Medication List Reviewed: Yes Review of Systems Review of Systems Constitutional: No chills, No diaphoresis Eyes: Denies Blindness, Denies Blurred Vision Ears, Nose, Mouth, Throat: denies ear pain, denies ear discharge Respiratory: No cough, No phlegm, No short of breath Cardiovascular: No chest pain, No edema Gastrointestinal: No abdominal pain, No constipation, No diarrhea Genitourinary: No discharge, No dysuria Musculoskeletal: No back pain, No joint pain Past Pcmtsab-Rzeoeu-Aljtyr Hx Patient Social History Alcohol Use: Occasionally Uses Alcohol Beverage of Choice: Beer Recreational Drug Use: No Smoking Status: Former Smoker Type Used: Smokeless Tobacco 2nd Hand Smoke Exposure: No Recent Foreign Travel: No Contact w/Someone Who Travel: No Recent Hopitalizations: No Immunizations Up To Date Date of Pneumonia Vaccine: Jul 18, 2012 Date of Influenza Vaccine: Mar 19, 2012 Past Medical History Surgeries: Yes (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, KNEE,SHOLDER) Neurological, Orthopedic Respiratory: No Cardiac: Yes Hypertension Neurological: Yes (BELLS PALSY. SEIZURES--NEW ONSET ) Seizure Disorder Reproductive Disorders: No Sexually Transmitted Disease: No Genitourinary: No Gastrointestinal: No Musculoskeletal: Yes Chronic Back Pain Endocrine: Yes Diabetes, Non-Insulin dep HEENT: No Cancer: Yes (MULTIPLE MYELOMA, STEM CELL TRANSPLANT) Did You Recieve Any Treatments: Yes Psychosocial: No Integumentary: No Blood Disorders: No Physical Exam Vital Signs Vital Signs - First Documented 03/24/19 20:20 Temp 35.8 Pulse 123 Resp 18 B/P (MAP) 135/94 (108) Pulse Ox 100 Capillary Refill : Height, Weight, BMI Height: 6'1.00" Weight: 210lbs. oz. 95.407605xk; 21.09 BMI Method:Stated General Appearance: WD/WN, no apparent distress (appears mildly postictal) HEENT: PERRL/EOMI, normal ENT inspection, TMs normal, other (right anterior tip of the tongue has a small bruise without bleeding or laceration) Neck: non-tender, full range of motion, supple, normal inspection Respiratory: chest non-tender, lungs clear, normal breath sounds, no respir atory distress, no accessory muscle use Cardiovascular: normal peripheral pulses, regular rate, rhythm Peripheral Pulses: 2+ Radial Pulses (R), 2+ Radial Pulses (L) Gastrointestinal: normal bowel sounds, non tender, soft Neurologic/Psychiatric: executive director of nursing II-XII nml as tested, no motor/sensory deficits, alert, oriented x 3, other (difficulty remembering medications) Crainal Nerves: normal hearing, normal speech, PERRL Skin: normal color, warm/dry Progress/Results/Core Measures Results/Orders Lab Results Laboratory Tests Test 03/24/19 20:20 03/24/19 20:38 03/24/19 21:48 Range/Units White Blood Count 4.5 4.3-11.0 10^3/uL Red Blood Count 3.88 L 4.35-5.85 10^6/uL Hemoglobin 10.9 L 13.3-17.7 G/DL Hematocrit 33 L 40-54 % Mean Corpuscular Volume 85 80-99 FL Mean Corpuscular Hemoglobin 28 25-34 PG Mean Corpuscular Hemoglobin Concent 33 32-36 G/DL Red Cell Distribution Width 14.4 10.0-14.5 % Platelet Count 184 130-400 10^3/uL Mean Platelet Volume 8.1 7.4-10.4 FL Sodium Level 129 L 135-145 MMOL/L Potassium Level 4.8 3.6-5.0 MMOL/L Chloride Level 92 L 98-107 MMOL/L Carbon Dioxide Level 17 L 21-32 MMOL/L Anion Gap 20 H 5-14 MMOL/L Blood Urea Nitrogen 10 7-18 MG/DL Creatinine 1.50 H 0.60-1.30 MG/DL Estimat Glomerular Filtration Rate 60 BUN/Creatinine Ratio 7 Glucose Level 118 H 70-105 MG/DL Calcium Level 9.0 8.5-10.1 MG/DL Corrected Calcium 9.4 8.5-10.1 MG/DL Total Bilirubin 1.1 H 0.1-1.0 MG/DL Aspartate Amino Transf (AST/SGOT) 67 H 5-34 U/L Alanine Aminotransferase (ALT/SGPT) 31 0-55 U/L Alkaline Phosphatase 64 40-136 U/L Total Protein 10.4 H 6.4-8.2 GM/DL Albumin 3.5 3.2-4.5 GM/DL Serum Alcohol < 10 <10 MG/DL Glucometer 119 H 70-110 MG/DL Urine Color YELLOW Urine Clarity CLEAR Urine pH 7.0 5-9 Urine Specific [place] 1.015 L 1.016-1.022 Urine Protein NEGATIVE NEGATIVE Urine Glucose (UA) NEGATIVE NEGATIVE Urine Ketones TRACE H NEGATIVE Urine Nitrite NEGATIVE NEGATIVE Urine Bilirubin NEGATIVE NEGATIVE Urine Urobilinogen 0.2 < = 1.0 MG/DL Urine Leukocyte Esterase NEGATIVE NEGATIVE Urine RBC (Auto) NEGATIVE NEGATIVE Urine RBC RARE /HPF Urine WBC RARE /HPF Urine Squamous Epithelial Cells 2-5 /HPF Urine Crystals NONE /LPF Urine Bacteria TRACE /HPF Urine Casts PRESENT /LPF Urine Hyaline Casts 2-5 H /LPF Urine Mucus NEGATIVE /LPF Urine Culture Indicated NO Urine Opiates Screen NEGATIVE NEGATIVE Urine Oxycodone Screen NEGATIVE NEGATIVE Urine Methadone Screen NEGATIVE NEGATIVE Urine Propoxyphene Screen NEGATIVE NEGATIVE Urine Barbiturates Screen NEGATIVE NEGATIVE Ur Tricyclic Antidepressants Screen NEGATIVE NEGATIVE Urine Phencyclidine Screen NEGATIVE NEGATIVE Urine Amphetamines Screen POSITIVE H NEGATIVE Urine Methamphetamines Screen POSITIVE H NEGATIVE Urine Benzodiazepines Screen POSITIVE H NEGATIVE Urine Cocaine Screen NEGATIVE NEGATIVE Urine Cannabinoids Screen NEGATIVE NEGATIVE My Orders Orders - KAMLA WATSON Cbc No Diff (03/24/19 20:23) Comprehensive Metabolic Panel (03/24/19 20:23) Ua Culture If Indicated (03/24/19 20:23) Accucheck Stat ONCE (03/24/19 20:23) Drug Screen Stat (Urine) (03/24/19 20:35) Ed Iv/Invasive Line Start (03/24/19 20:35) Ns Iv 1000 Ml (Sodium Chloride 0.9%) (03/24/19 20:35) Alcohol (03/24/19 20:46) Vital Signs/I&O 03/24/19 20:20 Temp 35.8 Pulse 123 Resp 18 B/P (MAP) 135/94 (108) Pulse Ox 100 Progress Progress Note #1: Time: 20:27 Progress Note GCS of 15. He was able to transfer from the gurney to the bed. He is not endorsing any symptoms. He does not endorse that he is out of his medications. Plan to let him come to a little more check some basic labs while we wait and see if we can get a better history as far as if we should be looking for infect ion or other trauma. Fairly benign survey other than tip of his tongue was mildly bruised. He was able to remember this examiner seen him in the past. EMS reports patient's blood sugar was 141 and arrived. Patient was seen a year ago for similar presentation and at that time he was not on any anticonvulsants however he had done a thorough workup with neurology and was not started on anything but he did start Lyrica for some neuropathic pain related to his history of MM. His suspicion at the time was that the Lyrica may have caused his first seizure. Apparently now he is on gabapentin. He is known to Dr. Goodrich, oncology in [place] and Dr. Latif, neurosurgery. At that time we also discovered he had a urinary tract infection and he had another 30 second tonic-clonic seizure so we started Keppra, Rocephin with the intention of transferring him to [place], [place]. We had an excepting position but he decided to leave [place]. Other than the gabapentin he does not appear to be on any anticonvulsants at this time. Progress Note #2: Time: 20:47 Departure Impression Primary Impression: Seizure-like activity Additional Impressions: Dehydration, mild Methamphetamine use Disposition: 01 HOME, SELF-CARE Condition: Improved Departure-Patient Inst. Decision time for Depature: 22:48 Referrals: NO,LOCAL PHYSICIAN (PCP/Family) Primary Care Physician Patient Instructions: Dehydration, Adult (DC) Add. Discharge Instructions: Drink lots of fluids. Sports drinks are encouraged. Follow-up primary care as necessary. Discontinue the use of methamphetamines. All discharge instructions reviewed with patient and/or family. Voiced understanding. KAMLA WATSON 6, 2019 20:29 POS
--- NOTE | 2019-03-24 20:30 | NUR ---
Pt's bed rails padded at this time with blankets.
[2019-03-24] MEDS ORDERED: NS IV 1000 ML 1,000 ML IV SCH (20:35)
[2019-03-24 20:47] LABS: ALBUMIN 3.5 GM/DL (3.2-4.5); BILIRUBIN,TOTAL 1.1 MG/DL (0.1-1.0); CREATININE SERUM 1.5 MG/DL (0.60-1.30); POTASSIUM 4.8 MMOL/L (3.6-5.0); TOTAL PROTEIN 10.4 GM/DL (6.4-8.2)
[2019-03-24 21:54] LABS: BILIRUBIN,URINE NEGATIVE (NEGATIVE); CLARITY,URINE CLEAR; COLOR,URINE YELLOW; GLUCOSE, URINE (UA) NEGATIVE (NEGATIVE); KETONES,URINE TRACE (NEGATIVE); LEUKOCYTE ESTERASE ,URINE NEGATIVE (NEGATIVE); NITRITE,URINE NEGATIVE (NEGATIVE); PROTEIN,URINE NEGATIVE (NEGATIVE)
[2019-03-24 22:03] LABS: RBC,URINE RARE /HPF; WBC,URINE RARE /HPF
[2019-03-24 22:04] LABS: BACTERIA,URINE TRACE /HPF
[2019-03-24 22:10] LABS: AMPHETAMINE SCREEN, URINE POSITIVE (NEGATIVE); BARBITURATE SCREEN URINE NEGATIVE (NEGATIVE); BENZODIAZEPINES SCREEN URINE POSITIVE (NEGATIVE); CANNABINOID SCREEN, URINE NEGATIVE (NEGATIVE); COCAINE SCREEN URINE NEGATIVE (NEGATIVE); METHADONE STAT NEGATIVE (NEGATIVE); METHAMPHETAMINE SCREEN URINE S POSITIVE (NEGATIVE); OPIATE SCREEN URINE NEGATIVE (NEGATIVE); OXYCODONE STAT NEGATIVE (NEGATIVE); PROPOXYPHENE STAT NEGATIVE (NEGATIVE); TRICYCLIC ANTIDEPRESSANTS SCRE NEGATIVE (NEGATIVE)
[2019-03-24 23:00] VITALS: BP 135/94
== END 2019-03-24 23:02 | disposition home or self-care (01) ==
LOC: EDUNIT# 20:17 → ER 20:19
DX: G40.909 Epilepsy, unspecified, not intractable, without status epilepticus (principal); E86.0 Dehydration; F15.90 Other stimulant use, unspecified, uncomplicated; I10 Essential (primary) hypertension; E11.9 Type 2 diabetes mellitus without complications; G51.0 Bell's palsy; Z85.79 Personal history of other malignant neoplasms of lymphoid, hematopoietic and related tissues; Z79.84 Long term (current) use of oral hypoglycemic drugs; Z87.891 Personal history of nicotine dependence; Z94.84 Stem cells transplant status
CPT/HCPCS: 36415; 80053; 80306; 80320; 81000; 82962; 85027; 96360